=== PATIENT | female | born 1960 | race Caucasian/White ===

== ENCOUNTER → 2017-01-02 | Outpatient (CLI) | payer BC ==
--- NOTE | 2017-01-03 11:16 | RADIOLOGY REPORT (SQ) ---
EXAM DESCRIPTION: MRI BREAST BILAT W AND/OR WO COMPLETED DATE/TIME: 01/02/2017 11:34 am REASON FOR STUDY: BREAST CA C50.919 MALIGNANT NEOPLASM OF UNSP SITE OF UNSPECIFIED FEMAL COMPARISON: Mammography and ultrasound. PATHOLOGIC CORRELATION: Invasive ductal carcinoma. CONTRAST TYPE AND DOSE: 20 mL Prohance. RENAL FUNCTION: GFR > 60. TECHNIQUE: MR imaging performed with a dedicated breast coil. Pre contrast T1 and T2 weighted images . Pre contrast and post contrast enhanced T1 weighted images with fat saturation. Subtraction images, 3D thick and thin MIPS, and kinetic analysis performed on an independent workstat ion. ([employer] workstation) Magnet strength: 1.5 T LIMITATIONS: None FINDINGS: BREAST DENSITY: c. The breasts are heterogeneously dense, which may obscure small masses. BACKGROUND PARENCHYMAL ENHANCEMENT:Minimal. RIGHT BREAST: No enhancing or suspicious masses. No clumped, regional/segmental ductal enhancement. CHEST WALL: Normal tissue planes. No abnormal internal mammary nodes. AXILLA: Normal axillary and retro-pectoral nodes. LEFT BREAST:Index lesion dominant mass in the medial breast measures 4 cm maximum diameter. Micro lo bulated with heterogeneous enhancement and type 3 curve. Extending medially and posteriorly from the S mass is a seconds mass along the medial chest wall without chest wall invasion. This measures 1.8 cm. Type 3 curve. No clumped, regional/segmental ductal enhancement. CHEST WALL: Normal tissue planes. No abnormal internal mammary nodes. AXILLA: Normal axillary and retro-pectoral nodes. OTHER:There is a focal area of suspicion in the sternum with low signal on T1 and high signal on T2. No suspicious findings in the visualized liver. IMPRESSION: Index mass in the left breast measuring 4 cm with a seconds mass posteromedial along the medial chest wall measuring 1.8 cm. This is either a satellite lesion, or a metastatic intramammary lymph node. Area in the sternum suspicious for metastatic disease. BIRAD: RIGHT BREAST: 1 Negative. LEFT BREAST: 5 Highly suggestive of malignancy. Appropriate action should be taken. Lesion 2 Index lesion is BI-RADS 6. RECOMMENDATION: RECOMMENDED FOLLOW-UP: If there is potential change in treatment plan, the second po steromedial lesion should be biopsied. Lesion should be visible by ultrasound for biopsy. Recommend bone scan for evaluation of bony metastatic disease. TECHNICAL DOCUMENTATION: JOB ID: [id number]- All Rights Reserved
== END ==
LOC: RAD 09:30
PROVIDERS: ATTEND Surgery
DX: C50.919 Malignant neoplasm of unspecified site of unspecified female breast (principal)
CPT/HCPCS: 82565; A9576; C8906; 77059

== ENCOUNTER → 2017-01-10 | Day surgery (SDC) | payer BC ==
[~2017-01-10] MED LIST: LIDOCAINE 2% INJ (20 MG/ML) 20 ML MDV ONE
--- NOTE | 2017-01-15 13:28 | WOMENS IMAGING REPORT ---
EXAM DESCRIPTION: U/S BREAST BX; LEFT DIG DX MAMMO NO CHG COMPLETED DATE/TIME: 01/10/2017 2:38 pm; 01/10/2017 2:34 pm REASON FOR STUDY: C50.919; C50.919 S/P US LT BRST BX FOR CLIP PLACEMENT C50.919 MALIGNANT NEOPLASM OF UNSP SITE OF UNSPECIFIED FEMAL COMPARISON: MRI 01/02/2017 Outside mammograms and ultrasound 12/21/2016 Outside prior mammograms 04/22/2015, 05/03/2009 TECHNIQUE: The procedure was discussed with the patient and the patient agreed to proceed. The patient was scanned and the area of interest in the upper inner quadrant of the left breast was l ocalized. This correlates with the area of concern on prior imaging studies. This area was targeted for ultrasound-guided core biopsy. After sterile skin prep and 3.5 mL of local lidocaine 1% for skin and deep tissue anesthesia, a 14 ga uge coaxial core biopsy needle was used to obtain several cores of tissue from the lesion. Under ult rasound guidance, a ribbon clip was placed in the areas sampled. There were no immediate post-proced ure complications. MAMMOGRAM: Post-procedure two view mammogram was acquired in the digital mammogram suite. The clip wa s not in the expected location. No significant hematoma. Ultrasound-guided biopsy was performed clos e to the dominant mass, on the lateral edge about 1 cm from the edge of the tumor. The area of toyin rn on the MRI is more superior and medial in the left breast, near the sternum. This area was not we ll-visualized at ultrasound. These findings were discussed with Dr. Perez, 01/11/2017. These findings were also discussed with the patient. Stereotactic biopsy of this breast tissue in the far upper in ner quadrant left breast will be performed. Pathology yields a diagnosis of malignancy Pathology is concordant. LIMITATIONS: None. FINDINGS: Ultrasound guided breast biopsy as described above. POST PROCEDURE MAMMOGRAMS FOR MARKER PLACEMENT: Yes IMPRESSION: ULTRASOUND-GUIDED CORE BIOPSY OF THE LEFT BREAST YIELDS A DIAGNOSIS OF MALIGNANCY. THE POSTPROCEDURE TWO-VIEW MAMMOGRAMS DEMONSTRATE THAT THE CLIP IS INFERIOR AND LATERAL TO THE AREA O F CONCERN NOTED ON MRI WHICH IS IN THE FAR UPPER INNER QUADRANT LEFT BREAST. THESE FINDINGS WERE DIS CUSSED WITH THE PATIENT AND WITH DR. PEREZ. PATIENT WILL BE RESCHEDULED FOR A A STEREOTACTIC BIOPSY O F THE UPPER INNER QUADRANT. COMMENT: COMMUNICATION: FINDINGS DISCUSSED WITH THE PATIENT AND ORDERING PHYSICIAN 01/11/2017 Patient medication list reviewed: Yes- Quality ID# [id number]:Eligible professional attests to documenting i n the medical record they obtained, updated, or reviewed the patient's current medications. TECHNICAL DOCUMENTATION: JOB ID: [id number] [employer]- All Rights Reserved
== END ==
LOC: WI 13:20
PROVIDERS: ATTEND Surgery
PROC: 0HBU3ZX Excision of Left Breast, Percutaneous Approach, Diagnostic (ICD-10-PCS; principal; 2017-01-10)
DX: C50.912 Malignant neoplasm of unspecified site of left female breast (principal)
CPT/HCPCS: 88305 ×2; 19083; J3490

== ENCOUNTER → 2017-01-16 | Day surgery (SDC) | payer BC ==
[~2017-01-16] MED LIST changes: +LIDOCAINE 1%/EPINEPHRINE INJ 20 ML VIAL ONE; -LIDOCAINE 2% INJ (20 MG/ML) 20 ML MDV ONE
--- NOTE | 2017-01-18 17:16 | RADIOLOGY REPORT (SQ) ---
EXAM DESCRIPTION: STEREO BREAST BX; LEFT DIG DX MAMMO NO CHG COMPLETED DATE/TIME: 01/16/2017 1:51 pm; 01/16/2017 1:54 pm REASON FOR STUDY: MAL ETELVINA OF UNSPECIFIED LEFT FEMALE BREAST; LT BREAST POST BIOPSY C50.912 MALIGNAN T NEOPLASM OF UNSPECIFIED SITE OF LEFT FEMAL COMPARISON: Multiple mammograms and breast ultrasounds dating back to 2008, MRI bilateral breast 01/02/2017 TECHNIQUE: Vacuum-assisted stereotactic-guided biopsy of the lesion in the far left medial breast. S erial progress stereotactic and single digital images acquired. PROCEDURE: The procedure was discussed with the patient, including possible complications such as bleeding, infection, nondiagnostic sample or possible findings such as atypical ductal hyperplasia wh ich would require additional surgery. Possible clip placement was explained. The patient agreed t o the procedure. The patient was placed prone on the stereotactic table. The lesion in the breast was localized ster eotactically. The skin of the breast was prepped in sterile fashion. Superficial and deep local an esthesia was provided. A small incision was made in the skin and the biopsy probe was advanced to t he target. Using the vacuum-assisted core biopsy device, multiple core specimens were obtained. Continuous low dose infusion of local anesthesia was used during the procedure. A specimen radiograph was obtained. The radiograph demonstrated solid tissue in the biopsy tissue. Using [id number] technique a ribbon clip was deployed at the biopsy site. Mammographic image confirmed presence of the clip. The probe was then removed and hemostasis obtained with manua l compression. A compression bandage was applied. Postoperative instructions were explained to th e patient. POST-PROCEDURE TWO VIEW DIGITAL MAMMOGRAM: An additional two view mammogram was recorded in the [facility] mammographic suite. Marker clip is present at the biopsy site, marking the malignant appearing tissue in the far medial left breast near the sternum seen on MRI 01/02/2017. LIMITATIONS: None. FINDINGS: PATHOLOGY: Invasive ductal carcinoma CONCORDANT: Yes. POST PROCEDURE MAMMOGRAMS FOR MARKER PLACEMENT: Yes IMPRESSION: SUCCESSFUL STEREOTACTIC-GUIDED BIOPSY OF THE LESION IN THE LEFT BREAST. BIOPSY RESULTS ARE CONCORDANT WITH IMAGING FINDINGS FOLLOW-UP: As Per Dr Reich NOTIFICATION: Dr Reich notified. COMMENT: Patient medication list reviewed: Yes- Quality ID# [id number]:Eligible professional attests to doc umenting in the medical record they obtained, updated, or reviewed the patient's current medications. TECHNICAL DOCUMENTATION: JOB ID: [id number] [employer]- All Rights Reserved
== END ==
LOC: WI 10:39
PROVIDERS: ATTEND Surgery
PROC: 0HBU3ZX Excision of Left Breast, Percutaneous Approach, Diagnostic (ICD-10-PCS; principal; 2017-01-16)
DX: C50.912 Malignant neoplasm of unspecified site of left female breast (principal)
CPT/HCPCS: 88305 ×2; 88342; 19081; J3490

== ENCOUNTER → 2017-01-24 | Outpatient (CLI) | payer BC ==
--- NOTE | 2017-01-24 11:12 | RADIOLOGY REPORT (SQ) ---
EXAM DESCRIPTION: CT CHEST WITH; CT ABD/PELVIS WITH IV ONLY COMPLETED DATE/TIME: 01/24/2017 9:53 am REASON FOR STUDY: BREAST CANCER C50.212 MALIG NEOPLASM OF UPPER-INNER QUADRANT OF LEFT FEMAL COMPARISON: MRI bilateral breasts 01/02/2017 CONTRAST TYPE AND DOSE: contrast/concentration: Isovue 370.00 mg/ml; Total Contrast Delivered: 91.0 ml; Total Saline Delivered: 70.0 ml RENAL FUNCTION: Creatinine 0.6 TECHNIQUE: CT scan of the chest performed using helical scanning technique with dynamic intravenous contrast injection. Images reviewed with lung, soft tissue and bone windows. Reconstructed coronal a nd sagittal MPR images reviewed. All images stored on PACS. CT scan of the abdomen and pelvis performed with intravenous and without oral contrastusing helical s lois technique with dynamic intravenous contrast injection. Images reviewed with lung, soft tissu e and bone windows. Reconstructed coronal and sagittal MPR images reviewed. Delayed images for eval uation of the urinary system also acquired and evaluated. All images stored on PACS. All CT scanners at this facility use dose modulation, iterative reconstruction, and/or weight based d osing when appropriate to reduce radiation dose to as low as reasonably achievable (ALARA). [facility]: Dose Right [facility]: CareDose [facility]: Dose Right [facility]: Teradose 4D [facility]: [employer] RADIATION DOSE: Up-to-date CT equipment and radiation dose reduction techniques were employed. CTDIv ol: 6.3 - 20.9 mGy. DLP: 1952 mGy-cm. . LIMITATIONS: None. FINDINGS: CHEST: LUNGS AND PLEURA: No opacities, nodules, masses. No pneumothorax. No effusions. HILAR AND MEDIASTINAL STRUCTURES: No identified masses or abnormal nodes. HEART AND VASCULAR STRUCTURES: No aneurysm or dissection. No central pulmonary emboli. No pericardi al effusion. HARDWARE: None. THYROID AND OTHER SOFT TISSUES: Thyroid is unremarkable. In the medial left breast, a dominant nodule is present 3.6 x 2.7 cm in size on axial image 29, previ ously biopsied and shown to be malignant. A 2nd, smaller nodule is seen medial to the dominant mass on axial image 28, 1.6 x 0.8 cm in size also biopsy-proven malignant. BONES: On axial image 50-55, and sagittal image 44, a 1.5 x 1 cm mixed lytic and sclerotic focus is p resent in the midline sternum worrisome for metastatic lesion. This correlates with MRI from 01/03/20 17. Bony structures are otherwise unremarkable. OTHER: No other significant finding. ABDOMEN AND PELVIS: LIVER: Normal size. No masses. No dilated ducts. SPLEEN: Normal size. No focal lesions. PANCREAS: No masses. No significant calcifications. No adjacent inflammation or peripancreatic fluid collections. Pancreatic duct not dilated. GALLBLADDER: No identified stones by CT criteria. No inflammatory changes to suggest cholecystitis. ADRENAL GLANDS: No significant masses or asymmetry. RIGHT KIDNEY AND URETER: No solid masses. No significant calcification. No hydronephrosis or hydroure ter. LEFT KIDNEY AND URETER: No solid masses. No significant calcification. No hydronephrosis or hydrouret er. AORTA AND VESSELS: No aneurysm. No dissection. Renal arteries, SMA, celiac without stenosis. RETROPERITONEUM: No retroperitoneal adenopathy, hemorrhage or masses. BOWEL AND PERITONEAL CAVITY: No masses or inflammatory changes. No free fluid or peritoneal masses. APPENDIX: Not visualized, surgically absent ABDOMINAL WALL: No masses. No hernias. BONES: No significant or acute findings. PELVIS: No other significant finding. Post hysterectomy. No adenopathy or free fluid. IMPRESSION: Malignant nodules in the medial aspect of the left breast with solitary sternal bony met astatic lesion. Post hysterectomy and appendectomy TECHNICAL DOCUMENTATION: JOB ID: [id number] Quality ID # [id number]: Final reports with documentation of one or more dose reduction techniques (e.g., Au tomated exposure control, adjustment of the mA and/or kV according to patient size, use of iterative reconstruction technique) 2011 [employer]- All Rights Reserved
== END ==
LOC: RAD 09:25
PROVIDERS: ATTEND Internal Medicine
DX: C50.212 Malignant neoplasm of upper-inner quadrant of left female breast (principal)
CPT/HCPCS: 71260; 74177

== ENCOUNTER → 2017-01-28 | Outpatient (CLI) | payer BC ==
--- NOTE | 2017-01-28 12:21 | RADIOLOGY REPORT (SQ) ---
EXAM DESCRIPTION: NM MUGA REST COMPLETED DATE/TIME: 01/28/2017 11:59 am REASON FOR STUDY: BREAST CANCER C50.212 MALIG NEOPLASM OF UPPER-INNER QUADRANT OF LEFT FEMAL COMPARISON: None. RADIONUCLIDE AND DOSE: 26.8 mCi The route of agent administration: Intravenous TECHNIQUE: Following administration of the radionuclide, gated images of the heart are obtained in t hree projections. Left ventricular functional analysis performed. LIMITATIONS: None. FINDINGS: LEFT VENTRICULAR FUNCTION: EJECTION FRACTION: 60%. END-DIASTOLIC VOLUME: 94 mL. END-SYSTOLIC VOLUME: 37 mL. WALL MOTION: No focal wall motion abnormalities. OTHER: No other significant finding. IMPRESSION: NORMAL CARDIAC MUGA STUDY. NORMAL LEFT VENTRICULAR FUNCTION WITH VALUES ABOVE. TECHNICAL DOCUMENTATION: JOB ID: [id number] [employer]- All Rights Reserved
== END ==
LOC: RAD 10:36
PROVIDERS: ATTEND Internal Medicine
DX: C50.212 Malignant neoplasm of upper-inner quadrant of left female breast (principal)
CPT/HCPCS: 78472; A9560; Q9969

== ENCOUNTER → 2017-02-01 | Outpatient (CLI) | payer BC ==
--- NOTE | 2017-02-01 14:03 | RADIOLOGY REPORT (SQ) ---
EXAM DESCRIPTION: NM WHOLE BODY BONE SCAN COMPLETED DATE/TIME: 02/01/2017 1:50 pm REASON FOR STUDY: BREAST CA (C50.212) C50.212 MALIG NEOPLASM OF UPPER-INNER QUADRANT OF LEFT FEMAL COMPARISON: Chest x-ray 02/01/2017, CT chest 01/26 RADIONUCLIDE AND DOSE: 20 millicuries Tc99m MDP. The route of agent administration: Intravenous. ADDITIONAL DRUGS AND DOSES: None. TECHNIQUE: Routine delayed images at 3 hours post radionuclide injection acquired of the bony skelet on including anterior and posterior whole-body projections and additional focused images as needed. LIMITATIONS: None. FINDINGS: BONES: There is mild increased uptake in the acromioclavicular joints, right knee, and lef t foot. These areas are felt to represent degenerative change. There are no other abnormal areas up take to suggest metastatic disease to bone. KIDNEYS: Symmetric excretion without obstruction. OTHER: No other significant finding. IMPRESSION: There is no evidence of metastatic disease to bone. COMMENT: PQRS 3570F: Current bone scan is compared with any available plain radiographs, prior bone scans, and CT/MRI. TECHNICAL DOCUMENTATION: JOB ID: [id number] [employer]- All Rights Reserved
== END ==
LOC: RAD 08:00
PROVIDERS: ATTEND Internal Medicine
DX: C50.212 Malignant neoplasm of upper-inner quadrant of left female breast (principal)
CPT/HCPCS: 78306; A9561; Q9969

== ENCOUNTER 2017-02-05 14:02 | Day surgery (SDC) | payer BC ==
[2017-01-29 10:20] LABS: HEMATOCRIT 44.5 % (36.0-47.0); HGB HCT DIFFERENCE 0.5; MEAN CORPUSCULAR HEMOGLOBIN 31.2 pg (27.0-33.4); MEAN CORPUSCULAR HGB CONC 33.7 g/dL (32.0-36.0); MEAN CORPUSCULAR VOLUME 93 fl (80-97); RED BLOOD COUNT 4.81 10^6/uL (3.72-5.28); RED CELL DISTRIBUTION WIDTH 12.7 % (11.5-14.0); WHITE BLOOD COUNT 8.4 10^3/uL (4.0-10.5)
--- NOTE | 2017-02-01 08:52 | RADIOLOGY REPORT (SQ) ---
EXAM DESCRIPTION: CHEST PA/LATERAL COMPLETED DATE/TIME: 02/01/2017 8:43 am REASON FOR STUDY: PRE-OP COMPARISON: None. EXAM PARAMETERS: NUMBER OF VIEWS: two views TECHNIQUE: Digital Frontal and Lateral radiographic views of the chest acquired. RADIATION DOSE: NA LIMITATIONS: none FINDINGS: LUNGS AND PLEURA: No opacities, masses or pneumothorax. No pleural effusion. MEDIASTINUM AND HILAR STRUCTURES: No masses or contour abnormalities. HEART AND VASCULAR STRUCTURES: Heart normal size. No evidence for failure. BONES: No acute findings. HARDWARE: None in the chest. OTHER: No other significant finding. IMPRESSION: NO SIGNIFICANT RADIOGRAPHIC FINDING IN THE CHEST. TECHNICAL DOCUMENTATION: JOB ID: [id number] [employer]- All Rights Reserved
[~2017-02-05 14:02] MED LIST changes: +ACETAMINOPHEN 325 MG TABLET PO PRN; +CEFAZOLIN 1 GM/D5W RTU 1 GM/50 ML RTUPB IV PRN; +LACTATED RINGERS 1000 ML IV PRN; +LIDOCAINE 0.5% INJ-PF (5 MG/ML) 50 ML SDV SUBCUT PRN; -LIDOCAINE 1%/EPINEPHRINE INJ 20 ML VIAL ONE
[2017-02-05] MEDS ORDERED: BUPIVACAINE HCL 0.25 % INJ/PF (2.5 MG/1 ML) 30 ML VIAL ONE (16:19)
[2017-02-05] MEDS ORDERED: MIDAZOLAM 2 MG/2 ML INJ ONE (16:26)
[2017-02-05] MEDS ORDERED: PROPOFOL INJ 200 MG/20 ML VIAL IV ONE (16:26)
[2017-02-05] MEDS ORDERED: FENTANYL CITRATE INJ/PF 100 MCG/2 ML AMPUL ONE (16:26)
[2017-02-05] MEDS ORDERED: BUPIVACAINE HCL 0.25 % INJ/PF (2.5 MG/1 ML) 30 ML VIAL INJ ONE (17:08)
--- NOTE | 2017-02-05 17:30 | Operative Report ---
Operative Report DATE OF SURGERY: 02/05/17 PREOPERATIVE DIAGNOSIS: Left breast cancer POSTOPERATIVE DIAGNOSIS: Left breast cancer OPERATION: Right subclavian single-lumen PowerPort placement (permanent implanted central venous access placed via fluoroscopic guidance) SURGEON: HEBER PEREZ ANESTHESIA: LMAC TISSUE REMOVED OR ALTERED: None COMPLICATIONS: None ESTIMATED BLOOD LOSS: 20 cc INTRAOPERATIVE FINDINGS: None PROCEDURE: Informed consent was obtained. Patient was brought to the operating room and placed on the operating room table in the supine position. Procedure was done under LMAC. Patient's right chest and neck were prepped and draped in the usual sterile fashion. Local anesthetic was administered. The right subclavian vein was entered. The guidewire was placed into the central circulation under fluoroscopic guidance. A subcutaneous pocket was created in the patient's right upper chest. Single-lumen catheter was then tunneled to the guidewire insertion point. Using the introducer catheter the catheter was fed into the central circulation under fluoroscopic guidance. Its tip resided at the atrial superior vena cava junction. The catheter was then attached to the port which was implanted into the subcutaneous pocket. The port withdrew blood and flushed easily. Hemostasis appeared excellent. All skin incisions were closed with subcuticular interrupted vicryl sutures followed by running subcuticular Monocryl suture. Patient tolerated procedure well with no apparent complications and was taken to the recovery area in stable condition. Stat portable chest x-ray was ordered in the recovery room.
[2017-02-05] MEDS ORDERED: OXYCODONE-ACETAMINOPHEN 5-325 MG TABLET PO PRN (17:34)
[2017-02-05] MEDS ORDERED: RINGERS SOLUTION,LACTATED 1,000 ML IV PRN (17:34)
--- NOTE | 2017-02-05 17:34 | PDOC DISCHARGE SUMMARY ---
Discharge Summary (SDC) - Discharge Final Diagnosis: Left breast cancer Date of Surgery: 02/05/17 Discharge Date: 02/05/17 Condition: Good Forms: ASU Anesthesia D/C Instruction, Discharge POC-Surgical Service Treatment or Instructions: poratacath placement. d/c home when met criteria. f/u prn. may shower in 2 days. keep steristrips on. Prescriptions: Oxycodone HCl/Acetaminophen [Percocet 5-325 mg Tablet] 1 - 2 tab PO ASDIR PRN # 15 tablet PRN Reason: Referrals: HEBER PEREZ MD [ACTIVE STAFF] - Discharge Diet: As Tolerated Discharge Activity: Activity As Tolerated - Stay active but avoid strenuous activity. May shower in 2 days. Keep Steri-Strips on. Report the Following to Your Physician Immediately: Shortness of Breath, Fever over 101 Degrees, Unusual Bleeding, Redness
--- NOTE | 2017-02-05 18:17 | RADIOLOGY REPORT (SQ) ---
EXAM DESCRIPTION: CHEST SINGLE VIEW COMPLETED DATE/TIME: 02/05/2017 5:49 pm REASON FOR STUDY: s/p portacath COMPARISON: 02/05/2017 EXAM PARAMETERS: NUMBER OF VIEWS: One view. TECHNIQUE: Single frontal radiographic view of the chest acquired. RADIATION DOSE: NA LIMITATIONS: None. FINDINGS: LUNGS AND PLEURA: There is no pneumothorax. There is no infiltrate or effusion. No mass is present. MEDIASTINUM AND HILAR STRUCTURES: No masses. Contour normal. HEART AND VASCULAR STRUCTURES: Heart normal in size. Normal vasculature. BONES: No acute findings. HARDWARE: An injection port is present on the right. The tip of the catheter is in the superior vena cava. OTHER: No other significant finding. IMPRESSION: Port-A-Cath placement without complication. TECHNICAL DOCUMENTATION: JOB ID: [id number]
[2017-02-05 19:35] VITALS: BP 123/73
--- NOTE | 2017-02-05 22:57 | RADIOLOGY REPORT (SQ) ---
EXAM DESCRIPTION: FLUORO/CV PLACEMENT COMPLETED DATE/TIME: 02/05/2017 5:29 pm REASON FOR STUDY: PORTACATH C50.919 MALIGNANT NEOPLASM OF UNSP SITE OF UNSPECIFIED FEMAL COMPARISON: Chest radiograph FLUOROSCOPY TIME: 0.7 minutes 2 images saved to PACS. TECHNIQUE: Intra-operative images acquired during surgical procedure to evaluate progress. NUMBER OF IMAGES: 2 LIMITATIONS: None. FINDINGS: Placement of venous access catheter via right subclavian approach. IMPRESSION: IMAGE(S) OBTAINED DURING PROCEDURE. COMMENT: Quality ID [id number]: Final reports for procedures using fluoroscopy that document radiation exp osure indices, or exposure time and number of fluorographic images (if radiation exposure indices are not available) Please consult full operative report of the attending physician for description of the procedure. TECHNICAL DOCUMENTATION: JOB ID: [id number] [email or web address]- All Rights Reserved
== END 2017-02-05 19:30 | disposition home or self-care (01) ==
LOC: OROUT 14:02
PROVIDERS: ATTEND Surgery
PROC: 05H533Z Insertion of Infusion Device into Right Subclavian Vein, Percutaneous Approach (ICD-10-PCS; principal; 2017-02-05 16:30)
DX: C50.912 Malignant neoplasm of unspecified site of left female breast (principal); M19.90 Unspecified osteoarthritis, unspecified site; F17.210 Nicotine dependence, cigarettes, uncomplicated; Z88.5 Allergy status to narcotic agent; Z88.2 Allergy status to sulfonamides; Z91.040 Latex allergy status
CPT/HCPCS: 36561; 36415; 85027; 71020; 71010; 77001; C1788; J2250; J0690; J3010; J2704; J1642; 532

== ENCOUNTER 2017-06-07 08:03 | Outpatient (CLI) | payer BC ==
[~2017-06-07 08:03] MED LIST changes: -ACETAMINOPHEN 325 MG TABLET PO PRN; -CEFAZOLIN 1 GM/D5W RTU 1 GM/50 ML RTUPB IV PRN; -LACTATED RINGERS 1000 ML IV PRN; -LIDOCAINE 0.5% INJ-PF (5 MG/ML) 50 ML SDV SUBCUT PRN; +NORMAL SALINE 1000 ML 1,000 ML IV PRN
[2017-06-07 08:46] VITALS: BP 104/53
== END 2017-06-07 09:25 | disposition home or self-care (01) ==
LOC: II 08:03 → 5TH 08:04 → II 09:25
PROVIDERS: ATTEND Internal Medicine
PROC: 3E0437Z Introduction of Electrolytic and Water Balance Substance into Central Vein, Percutaneous Approach (ICD-10-PCS; principal; 2017-06-07)
DX: C50.212 Malignant neoplasm of upper-inner quadrant of left female breast (principal)
CPT/HCPCS: 96360; 96375

== ENCOUNTER → 2017-06-23 | Outpatient (CLI) | payer BC ==
--- NOTE | 2017-06-24 08:57 | RADIOLOGY REPORT (SQ) ---
EXAM DESCRIPTION: PET CT SKULL/THIGH COMPLETED DATE/TIME: 06/23/2017 6:38 pm REASON FOR STUDY: BREAST CANCER C20 MALIGNANT NEOPLASM OF RECTUM COMPARISON: None. RADIONUCLIDE AND DOSE: 13.1 mCi F18 FDG The route of agent administration: Intravenous FASTING BLOOD SUGAR: 94 mg/dl CONTRAST TYPE AND DOSE: No CT contrast given. TECHNIQUE: Blood glucose level was verified. Above dose of FDG was injected intravenously. 2-D seg mented attenuation correction images were obtained from the base of the skull to the midthighs. Nonc ontrast CT images were obtained for attenuation correction and fusion with emission images. CT image s were performed without oral or intravenous contrast and are not sensitive for parenchymal lesions. A series of overlapping emission PET images were obtained. Images reviewed and manipulated at [facility] work station by the radiologist. Images stored on PACS. LIMITATIONS: None. FINDINGS: HEAD AND NECK: No areas of abnormal metabolic activity in the soft tissues of the head and neck. CHEST: No areas of abnormal metabolic activity in the chest. ABDOMEN AND PELVIS: No areas of abnormal metabolic activity in the abdomen or pelvis. Expected physi ologic activity is present in the genitourinary system and bowel. PROXIMAL LOWER EXTREMITIES: No areas of abnormal metabolic activity in the soft tissues of the lower extremities. BONES: No abnormal metabolic activity in the visualized skeleton. ADDITIONAL CT FINDINGS: No additional significant findings on the noncontrast CT images. OTHER: No other significant findings. IMPRESSION: No evidence of metastatic disease. TECHNICAL DOCUMENTATION: JOB ID: [id number]- All Rights Reserved
== END ==
LOC: RAD 14:56
PROVIDERS: ATTEND Internal Medicine
DX: C50.212 Malignant neoplasm of upper-inner quadrant of left female breast (principal)
CPT/HCPCS: 78815; A9552

== ENCOUNTER → 2017-07-04 | Outpatient (CLI) | payer BC ==
--- NOTE | 2017-07-04 14:51 | RADIOLOGY REPORT (SQ) ---
EXAM DESCRIPTION: NM MUGA REST COMPLETED DATE/TIME: 07/04/2017 2:08 pm REASON FOR STUDY: ENCTR FOR F/U EXAM AFTER COMPLETED TX FOR MALIGNANT NEOPLASM (Z08), ENCTR F C50.91 9 MALIGNANT NEOPLASM OF UNSP SITE OF UNSPECIFIED FEMAL Z08 ENCNTR FOR FOLLOW-UP EXAM AFTER TRTMT FO R MALIGNANT NEOP Z51.11 ENCOUNTER FOR ANTINEOPLASTIC CHEMOTHERAPY COMPARISON: None. RADIONUCLIDE AND DOSE: 23.1 mCi technetium 99 M pyrophosphate labeled red blood cells. The route of agent administration: Intravenous TECHNIQUE: Following administration of the radionuclide, gated images of the heart are obtained in t hree projections. Left ventricular functional analysis performed. LIMITATIONS: None. FINDINGS: LEFT VENTRICULAR FUNCTION: EJECTION FRACTION: 63%. END-DIASTOLIC VOLUME: 212 mL. END-SYSTOLIC VOLUME: 73 mL. WALL MOTION: No focal wall motion abnormalities. OTHER: No other significant finding. IMPRESSION: NORMAL CARDIAC MUGA STUDY. NORMAL LEFT VENTRICULAR FUNCTION WITH VALUES ABOVE. TECHNICAL DOCUMENTATION: JOB ID: [id number] [employer] All Rights Reserved
--- NOTE | 2017-07-05 17:16 | RADIOLOGY REPORT (SQ) ---
EXAM DESCRIPTION: MRI BREAST BILAT W AND/OR WO COMPLETED DATE/TIME: 07/04/2017 10:01 am REASON FOR STUDY: Breast Cancer, follow up to evaluate breast cancer after neoadjuvent treatm C50.91 9 MALIGNANT NEOPLASM OF UNSP SITE OF UNSPECIFIED FEMAL Z08 ENCNTR FOR FOLLOW-UP EXAM AFTER TRTMT FO R MALIGNANT NEOP Z51.11 ENCOUNTER FOR ANTINEOPLASTIC CHEMOTHERAPY COMPARISON: Prior MRI 01/02/2017 PATHOLOGIC CORRELATION: Known malignancy in the left breast. Neoadjuvant chemo. CONTRAST TYPE AND DOSE: 20 mL Prohance. RENAL FUNCTION: Not documented TECHNIQUE: MR imaging performed with a dedicated breast coil. Pre contrast T1 and T2 weighted images . Pre contrast and post contrast enhanced T1 weighted images with fat saturation. Subtraction images, 3D thick and thin MIPS, and kinetic analysis performed on an independent workstat ion. ([employer]matrix workstation) Magnet strength: 1.5 T LIMITATIONS: None. FINDINGS: BREAST DENSITY: b. There are scattered areas of fibroglandular density. BACKGROUND PARENCHYMAL ENHANCEMENT:Minimal. RIGHT BREAST: No enhancing or suspicious masses. No clumped, regional/segmental ductal enhancement. CHEST WALL: Normal tissue planes. No abnormal internal mammary nodes. AXILLA: Normal axillary and retro-pectoral nodes. LEFT BREAST:Dominant mass in the left breast is trauma significantly. There is some vague general en hancement in the region measuring approximately 2 cm. There is persistent extension toward the nippl e but decrease considerably from previous. Lesion 2 in the Superior medial persists but measures les s than 1 cm with much less enhancement. No clumped, regional/segmental ductal enhancement. CHEST WALL: There is continued concern for metastatic disease to the sternum, although the lesion ap pears to responded to chemotherapy. AXILLA: Normal axillary and retro-pectoral nodes. OTHER:No identified liver, or lung lesions. No other significant incidental findings. IMPRESSION: Marked response to chemotherapy with reduction in size and enhancement of both the domin ant lesion in the satellite lesion in the left breast. There is persistent enhancement to the nipple of the dominant lesion. Sternal lesion, likely metastatic, is smaller in size than on the previous study. No additional meta static lesions noted. BIRAD: RIGHT BREAST: 2 Benign findings. LEFT BREAST: 6 Known biopsy-proven malignancy. Appropriate action should be taken. RECOMMENDATION: RECOMMENDED FOLLOW-UP: Treatment protocol. TECHNICAL DOCUMENTATION: JOB ID: [id number] [employer]- All Rights Reserved
== END ==
LOC: RAD 08:32
PROVIDERS: ATTEND Surgery
DX: Z08 Encounter for follow-up examination after completed treatment for malignant neoplasm (principal); C50.912 Malignant neoplasm of unspecified site of left female breast
CPT/HCPCS: 82565; 78472; A9576; C8906; A9560; Q9969; 77059

== ENCOUNTER 2017-07-30 08:11 | Day surgery (SDC) | payer BC ==
--- NOTE | 2017-07-24 10:33 | EKG REPORT ---
SEVERITY:- NORMAL ECG - SINUS RHYTHM : Confirmed by: Marisol Cunningham 24-Jul-2017 10:32:15
[2017-07-24 10:58] LABS: HEMATOCRIT 42.5 % (36.0-47.0); HEMOGLOBIN 14.5 g/dL (12.0-15.5); MEAN CORPUSCULAR HEMOGLOBIN 32.7 pg (27.0-33.4); MEAN CORPUSCULAR HGB CONC 34.1 g/dL (32.0-36.0); MEAN CORPUSCULAR VOLUME 96 fl (80-97); PLATELET COUNT 288 10^3/uL (150-450); RED BLOOD COUNT 4.43 10^6/uL (3.72-5.28); RED CELL DISTRIBUTION WIDTH 15.2 % (11.5-14.0); WHITE BLOOD COUNT 7.7 10^3/uL (4.0-10.5)
[2017-07-24 11:24] LABS: ALANINE AMINOTRANSFERASE 37 U/L (9-52); ALBUMIN 4.1 g/dL (3.5-5.0); ALKALINE PHOSPHATASE 72 U/L (38-126); ANION GAP 9 (5-19); ASPARTATE AMINO TRANSFERASE 21 U/L (14-36); BILIRUBIN,DIRECT 0.2 mg/dL (0.0-0.4); BILIRUBIN,TOTAL 0.3 mg/dL (0.2-1.3); BLOOD UREA NITROGEN 9 mg/dL (7-20); CALCIUM 9.9 mg/dL (8.4-10.2); CARBON DIOXIDE 27 mmol/L (22-30); CHLORIDE 105 mmol/L (98-107); GLUCOSE 83 mg/dL (75-110); POTASSIUM 4.5 mmol/L (3.6-5.0); SODIUM 141.4 mmol/L (137-145); TOTAL PROTEIN 6.3 g/dL (6.3-8.2)
--- NOTE | 2017-07-24 13:48 | RADIOLOGY REPORT (SQ) ---
EXAM DESCRIPTION: CHEST PA/LATERAL COMPLETED DATE/TIME: 07/24/2017 10:55 am REASON FOR STUDY: PRE OP COMPARISON: AP chest 02/05/2017 CT chest 01/24/2017 PET-CT 06/23/2017 EXAM PARAMETERS: NUMBER OF VIEWS: two views TECHNIQUE: Digital Frontal and Lateral radiographic views of the chest acquired. RADIATION DOSE: NA LIMITATIONS: none FINDINGS: LUNGS AND PLEURA: No opacities, masses or pneumothorax. No pleural effusion. MEDIASTINUM AND HILAR STRUCTURES: No masses or contour abnormalities. HEART AND VASCULAR STRUCTURES: Heart normal size. No evidence for failure. BONES: No acute findings. HARDWARE: Right-sided permanent central line tip superior vena cava OTHER: No other significant finding. IMPRESSION: No acute findings. Right subclavian permanent central line tip superior vena cava TECHNICAL DOCUMENTATION: JOB ID: [id number]- All Rights Reserved
[~2017-07-30 08:11] MED LIST changes: +CEFAZOLIN 1 GM/D5W RTU 1 GM/50 ML RTUPB IV PRN; +DEXAMETHASONE SOD PHOSPHATE INJ 4 MG/1 ML VIAL ONE; +GLYCOPYRROLATE INJ 0.4 MG/2 ML VIAL ONE; +LACTATED RINGERS 1000 ML IV PRN; +LIDOCAINE 0.5% INJ-PF (5 MG/ML) 50 ML SDV SUBCUT PRN; +LIDOCAINE 2% INJ-PF (20 MG/ML) 2 ML AMPUL ONE; +LIDOCAINE 4% TRANSPARENT DRESSING 5 GM KIT TP PRN; +ONDANSETRON HCL INJ/PF 4 MG/2 ML SDV ONE; +SCOPOLAMINE HYDROBROMIDE 1.5 MG PATCH.TD72 TD PRN; +SUCCINYLCHOLINE CHLORIDE INJ 200 MG/10 ML VIAL ONE
[2017-07-30] MEDS ORDERED: FENTANYL CITRATE INJ/PF 100 MCG/2 ML AMPUL ONE (11:04)
[2017-07-30] MEDS ORDERED: MORPHINE SULFATE 10 MG/ML INJ ONE (11:05)
[2017-07-30] MEDS ORDERED: ACETAMINOPHEN 100 ML IV ONE (11:05)
[2017-07-30] MEDS ORDERED: MIDAZOLAM 2 MG/2 ML INJ ONE (11:05)
[2017-07-30] MEDS ORDERED: PROPOFOL INJ 200 MG/20 ML VIAL IV ONE (11:05)
[2017-07-30] MEDS ORDERED: FAMOTIDINE INJ/PF 20 MG/2 ML SDV IV ONE (11:15)
[2017-07-30] MEDS: METHYLENE BLUE 50 MG/10 ML AMPULE ONE ×2 (12:00→12:05)
--- NOTE | 2017-07-30 12:49 | RADIOLOGY REPORT (SQ) ---
EXAM DESCRIPTION: NM LYMPHATICS/LYMPH GLANDS COMPLETED DATE/TIME: 07/30/2017 10:50 am REASON FOR STUDY: LT BREAST CANCER C50.919 C50.919 MALIGNANT NEOPLASM OF UNSP SITE OF UNSPECIFIED F EMAL COMPARISON: Breast MRI 01/02/2017, 07/04/2017 Left breast diagnostic mammograms 01/16/2017 PET-CT 06/23/2017 RADIONUCLIDE AND DOSE: 530 microcuries TC-99mtilmanocept - [employer]. The route of agent administration: Subcutaneous in the skin. TECHNIQUE: The skin of the left breast was prepped in sterile fashion. The radiopharmaceutical was administered in equally divided doses in the intradermal periareolar breast. LIMITATIONS: None. FINDINGS: Images demonstrate activity at the injection site. Migration toward the left axilla. 2 s entinel nodes were marked on the skin surface IMPRESSION: ADMINISTRATION OF RADIOPHARMACEUTICAL FOR SENTINEL LYMPH NODE EVALUATION. TECHNICAL DOCUMENTATION: JOB ID: [id number] [employer]- All Rights Reserved
[2017-07-30] MEDS ORDERED: DIPHENHYDRAMINE HCL 50 MG/ML VIAL IV PRN (13:06)
[2017-07-30] MEDS ORDERED: PROMETHAZINE HCL INJ 25 MG/1 ML VIAL IV PRN (13:06)
[2017-07-30] MEDS ORDERED: FENTANYL CITRATE INJ/PF 100 MCG/2 ML AMPUL IV PRN ×3 (13:06)
[2017-07-30] MEDS ORDERED: BUPIVACAINE HCL 0.25 % INJ/PF (2.5 MG/1 ML) 30 ML VIAL ONE (13:58)
[2017-07-30] MEDS ORDERED: OXYCODONE-ACETAMINOPHEN 5-325 MG TABLET PO PRN (15:10)
[2017-07-30] MEDS ORDERED: NORMAL SALINE 1000 ML 1,000 ML IV PRN (15:10)
[2017-07-30] MEDS ORDERED: ONDANSETRON HCL INJ/PF 4 MG/2 ML SDV ONE (15:16)
--- NOTE | 2017-07-30 15:22 | Operative Report ---
Operative Report DATE OF SURGERY: 07/30/17 PREOPERATIVE DIAGNOSIS: Left breast cancer POSTOPERATIVE DIAGNOSIS: Left breast cancer OPERATION: Left mastectomy. Left axillary sentinel node biopsy. Injection of blue dye for identification of sentinel node. SURGEON: HEBER PEREZ ANESTHESIA: GA TISSUE REMOVED OR ALTERED: Left axillary sentinel nodes, left breast COMPLICATIONS: None ESTIMATED BLOOD LOSS: 100 cc INTRAOPERATIVE FINDINGS: Slightly enlarged axillary nodes. 2 sentinel nodes and slightly enlarged axillary node all negative for metastatic disease. PROCEDURE: Informed consent was obtained. Patient was brought to the operating room and placed on the operating table in supine position. After satisfactory induction of general anesthesia patient left breast was injected at the periareolar region with blue dye and breast massage was performed for 5 minutes. Her left breast and axilla were prepped and draped in usual sterile fashion. A ellipse of skin encompassing the nipple areolar complex was taken with the underlying left breast. Superior inferior lateral flaps were all created the breast was taken off the pectoralis along with the pectoralis fascia breast was passed off the table and marked with a short stitch marking superior border and long stitch marking the lateral border. Axillary sentinel node dissection was performed using the neoprobe and visualization. There were 2 hot nodes that were identified the first one was hot and blue the second one was just hot. The in vivo count of the first node was 30,921 with an ex vivo count of 41,319 for the second note the in vivo count was 2352 with an ex vivo count of 11,420. After these 2 nodes were harvested the background count was negligible. Palpation revealed a slightly enlarged node which was harvested but it was not hot and it was not blue. All 3 nodes were in the level 1 location. The two sentinel nodes were slightly enlarged with the slightly enlarged lymph nodes I did submit them for touch prep as well as frozen section the studies were negative for malignancy. With the negative nodes the operation was concluded. Hemostasis appeared excellent. The wound was closed with deep dermal interrupted Vicryl sutures followed by staple closure of the skin. 2 Kemar- Talamantes drains were placed prior to closure one at the axilla and one at the mastectomy site and brought out through separate stab incisions and sutured in place. Patient tolerated procedure well with no apparent complications and was taken to the recovery area in stable condition.
[2017-07-30] MEDS ORDERED: PROMETHAZINE HCL INJ 25 MG/1 ML VIAL ONE (15:23)
[2017-07-30] MEDS: ONDANSETRON 4 MG TAB.RAPDIS PO PRN (19:09)
[2017-07-30] MEDS: MORPHINE SULFATE 10 MG/ML INJ IV PRN (19:10)
--- NOTE | 2017-07-30 19:30 | PDOC PROGRESS REPORT ---
Subjective Progress Note for:: 07/30/17 Subjective:: Feels well. No complaints. Reason For Visit: C50.919 MALIGNANT NEOPLASM OF UNSP SITE OF UNSPECI Physical Exam Vital Signs: Temp Pulse Resp BP Pulse Ox 97.9 F 74 17 112/44 L 98 07/30/17 18:27 07/30/17 18:27 07/30/17 18:27 07/30/17 18:27 07/30/17 18:27 Intake & Output 07/29/17 07/30/17 07/31/17 06:59 06:59 06:59 Intake Total 2868 Output Total 582.5 Balance 2285.5 Weight 83.91 kg General appearance: PRESENT: no acute distress, cooperative Respiratory exam: PRESENT: clear to auscultation matilde, other - Mastectomy site with no swelling. Drain output is blood-tinged. Cardiovascular exam: PRESENT: RRR Extremities exam: PRESENT: other - No swelling. Results Laboratory Results: 07/24/17 10:10 07/24/17 10:10 Impressions: Chest X-Ray 07/24/17 10:28 IMPRESSION: No acute findings. Right subclavian permanent central line tip superior vena cava Lymph Scan Nuclear Medicine 07/30/17 00:00 IMPRESSION: ADMINISTRATION OF RADIOPHARMACEUTICAL FOR SENTINEL LYMPH NODE EVALUATION. Assessment & Plan - Diagnosis (1) Breast cancer, left Is this a current diagnosis for this admission?: Yes Plan: Status post mastectomy and sentinel node biopsy. Doing well. Will DC patient home in the a.m.
[2017-07-31] MEDS: ONDANSETRON 4 MG TAB.RAPDIS PO PRN (04:17)
[2017-07-31] MEDS: MORPHINE SULFATE 10 MG/ML INJ IV PRN (04:18)
--- NOTE | 2017-07-31 09:09 | PDOC PROGRESS REPORT ---
Subjective Subjective:: Feels well. Reason For Visit: LEFT BREAST CANCER Physical Exam Vital Signs: Temp Pulse Resp BP Pulse Ox 98.0 F 69 18 105/53 L 96 07/31/17 08:12 07/31/17 08:12 07/31/17 08:12 07/31/17 08:12 07/31/17 08:12 Intake & Output 07/30/17 07/31/17 08/01/17 06:59 06:59 06:59 Intake Total 2868 Output Total 582.5 250 Balance 2285.5 -250 Weight 86.9 kg General appearance: PRESENT: no acute distress, cooperative Respiratory exam: PRESENT: clear to auscultation matilde, other - Mastectomy site clean dry and intact with no swelling. No erythema. No evidence of ischemia. Drain output is serosanguineous. Cardiovascular exam: PRESENT: RRR Extremities exam: PRESENT: other - No swelling. Results Laboratory Results: 07/24/17 10:10 07/24/17 10:10 Impressions: Chest X-Ray 07/24/17 10:28 IMPRESSION: No acute findings. Right subclavian permanent central line tip superior vena cava Lymph Scan Nuclear Medicine 07/30/17 00:00 IMPRESSION: ADMINISTRATION OF RADIOPHARMACEUTICAL FOR SENTINEL LYMPH NODE EVALUATION. Assessment & Plan - Diagnosis (1) Breast cancer, left Is this a current diagnosis for this admission?: Yes Plan: Status post mastectomy and sentinel node biopsy. Doing well. Discharge patient home.
[2017-07-31 10:43] VITALS: BP 104/64
--- NOTE | 2017-07-31 12:39 | DISCHARGE SUMMARY E ---
Discharge Summary NAME: PRETTY OSORIO : 1960 AGE: 56Y ADMITTED: 07/30/2017 DISCHARGED: 07/31/2017 DISCHARGE DIAGNOSIS: Left breast cancer. PROCEDURE PERFORMED UNDER HOSPITALIZATION: Left mastectomy, left axillary sentinel node biopsy and injection of blue dye for identification of sentinel node performed by Dr. Adeline Perez on 07/30/2017. HOSPITAL COURSE: The patient underwent the above mentioned procedure. She did well postoperatively. She is now being discharged to home in good condition. She may resume her home medications. Additional medication is Percocet 1 p.o. q.4 hours p.r.n. pain. Kemar-Talamantes drain care was instructed to the patient. She is to remain active at home. She will follow up with me next week. She may follow her regular diet. DICTATING PHYSICIAN: ADELINE PEREZ M.D. [id number] PHY#: [id number] ID: [id number] JOB#: [id number] ACCT: [id number] cc:ADELINE PEREZ M.D. >
--- NOTE | 2017-08-02 18:02 | WOMENS IMAGING REPORT ---
EXAM DESCRIPTION: BREAST SPECIMEN COMPLETED DATE/TIME: 08/01/2017 1:25 pm REASON FOR STUDY: LEFT BREAST SPECIMEN C50.919 MALIGNANT NEOPLASM OF UNSP SITE OF UNSPECIFIED FEMAL COMPARISON: 01/16/2017 POST STEREOTACTIC BIOPSY MAMMOGRAMS TECHNIQUE: Specimen radiograph from breast procedure performed in the operating room. LIMITATIONS: None. FINDINGS: Specimen radiograph from breast procedure performed in the operating room. Please see procedure note for details and final pathology. IMPRESSION: Specimen radiograph. TECHNICAL DOCUMENTATION: JOB ID: [id number]
== END 2017-07-31 11:30 | disposition home or self-care (01) ==
LOC: OROUT 08:11 → 2N 16:46 → OROUT 07-31 11:30
PROVIDERS: ATTEND Surgery
PROC: 07B60ZX Excision of Left Axillary Lymphatic, Open Approach, Diagnostic (ICD-10-PCS; 2017-07-30)
PROC: 0HTU0ZZ Resection of Left Breast, Open Approach (ICD-10-PCS; principal; 2017-07-30 11:30)
DX: C50.812 Malignant neoplasm of overlapping sites of left female breast (principal); Z17.0 Estrogen receptor positive status [ER+]; M19.90 Unspecified osteoarthritis, unspecified site; F17.210 Nicotine dependence, cigarettes, uncomplicated; Z88.5 Allergy status to narcotic agent; Z88.2 Allergy status to sulfonamides; Z88.3 Allergy status to other anti-infective agents; Z79.899 Other long term (current) drug therapy; D64.9 Anemia, unspecified
CPT/HCPCS: 93005; 36415; 85027; 80053; 88342 ×2; 88341 ×2; 88307 ×2; 88331; 71046; 78195; 93010; 19307; A9520; J2250; J0690; J1100; S0119 ×2; J3010; J2270 ×2; J3490 ×2; J2550; J0330; J2405; J7030; J7120; J2704; S0028; J0131; Q9968; 1610

== ENCOUNTER 2017-08-18 04:34 | Inpatient (IN) | payer BC ==
[2017-08-18] MEDS ORDERED: NORMAL SALINE 1000 ML 1,000 ML IV ONE ×2 (05:09→06:38)
[2017-08-18] MEDS ORDERED: ONDANSETRON HCL INJ/PF 4 MG/2 ML SDV IV ONE (05:09)
[2017-08-18] MEDS ORDERED: MORPHINE SULFATE 10 MG/ML INJ IV ONE (05:28)
[2017-08-18 05:50] LABS: ABSOLUTE LYMPHOCYTES (AUTO) 0.7 10^3/uL (0.5-4.7); ABSOLUTE MONOCYTES (AUTO) 0.4 10^3/uL (0.1-1.4); ABSOLUTE NEUT (AUTO) 10.5 10^3/uL (1.7-8.2); BASOPHILS % (AUTO) 0.2 % (0-2); EOSINOPHILS % (AUTO) 0.3 % (0-6); HEMOGLOBIN 14.4 g/dL (12.0-15.5); MEAN CORPUSCULAR HEMOGLOBIN 32.4 pg (27.0-33.4); MEAN CORPUSCULAR HGB CONC 33.5 g/dL (32.0-36.0); MEAN CORPUSCULAR VOLUME 97 fl (80-97); MONOCYTES % (AUTO) 3.1 % (3-13); PLATELET COUNT 291 10^3/uL (150-450); RED BLOOD COUNT 4.45 10^6/uL (3.72-5.28); RED CELL DISTRIBUTION WIDTH 13.9 % (11.5-14.0); SEGMENTED NEUTROPHILS % (AUTO) 90.4 % (42-78); TOTAL CELLS COUNTED % (AUTO) 100 %; WHITE BLOOD COUNT 11.7 10^3/uL (4.0-10.5)
--- NOTE | 2017-08-18 06:11 | ER Document Report ---
ED GI/ - General Chief Complaint: Nausea/Vomiting/Diarrhea Stated Complaint: VOMITING Time Seen by Provider: 08/18/17 04:50 Mode of Arrival: Ambulatory Information source: Patient Notes: Patient presents complaining of nausea and diarrhea that started yesterday. Patient states that she has had some lower abdominal cramping with the diarrhea. Patient denies any fever but does report chills. Patient states that her had vomiting and diarrhea symptoms a few days ago but his symptoms have since resolved. Patient is currently undergoing chemotherapy for breast cancer and is status post left mastectomy on 07/30/2017 TRAVEL OUTSIDE OF THE [place] IN LAST 30 DAYS: No - HPI Patient complains to provider of: Diarrhea, Pelvic pain. No: Vomiting Onset: Yesterday Timing/Duration: Persistent Quality of pain: Cramping Pain Level: 4 Vaginal bleeding (Compared to normal period): None Associated symptoms: Chills, Diarrhea, Nausea. denies: Dysuria, Fever, Urinary hesitancy, Urinary frequency, Urinary retention, Vomiting Exacerbated by: Denies Relieved by: Denies Similar symptoms previously: No Recently seen / treated by doctor: No - Related Data Allergies/Adverse Reactions: adhesive Allergy (Verified 08/18/17 04:44) RASH, SWELLING adhesive tape Allergy (Verified 08/18/17 04:44) RASH codeine Allergy (Verified 08/18/17 04:44) VOMITING, NEUROLICICAL ISSUES Sulfa (Sulfonamide Antibiotics) Allergy (Verified 08/18/17 04:44) Hives Past Medical History - General Information source: Patient - Social History Smoking Status: Current Every Day Smoker Frequency of alcohol use: None Drug Abuse: None Lives with: Spouse/Significant other Family History: Reviewed & Not Pertinent Patient has suicidal ideation: No Patient has homicidal ideation: No - Past Medical History Cardiac Medical History: Denies: Hx Coronary Artery Disease, Hx Heart Attack, Hx Hypertension Pulmonary Medical History: Reports: Hx Pneumonia Denies: Hx Asthma, Hx Bronchitis, Hx COPD Neurological Medical History: Denies: Hx Cerebrovascular Accident, Hx Seizures Renal/ Medical History: Denies: Hx Peritoneal Dialysis Malignancy Medical History: Reports: Hx Breast Cancer Musculoskeltal Medical History: Reports Hx Arthritis - BACK, NECK, BILAT HANDS Past Surgical History: Reports: Hx Mastectomy - Left - Immunizations Hx Diphtheria, Pertussis, Tetanus Vaccination: Yes Review of Systems - Review of Systems Constitutional: Chills EENT: No symptoms reported Cardiovascular: No symptoms reported. denies: Chest pain Respiratory: No symptoms reported. denies: Cough, Short of breath Gastrointestinal: Abdominal pain, Diarrhea, Nausea. denies: Vomiting Genitourinary: No symptoms reported. denies: Dysuria, Flank pain Female Genitourinary: No symptoms reported Musculoskeletal: No symptoms reported. denies: Back pain Skin: No symptoms reported Hematologic/Lymphatic: No symptoms reported Neurological/Psychological: No symptoms reported Physical Exam - Vital signs Vitals: Temp Pulse Resp BP Pulse Ox 98.8 F 113 H 22 H 118/73 94 08/18/17 04:45 08/18/17 04:45 08/18/17 04:45 08/18/17 04:45 08/18/17 04:45 - General General appearance: Appears well, Alert In distress: None - HEENT Head: Normocephalic, Atraumatic Eyes: Normal Conjunctiva: Normal Nasal: Normal Mouth/Lips: Normal Mucous membranes: Dry Pharynx: Normal Neck: Normal, Supple. No: Lymphadenopathy - Respiratory Respiratory status: No respiratory distress Chest status: Nontender Breath sounds: Normal Chest palpation: Normal - Cardiovascular Rhythm: Tachycardia Heart sounds: S1 appreciated, S2 appreciated Murmur: No - Abdominal Inspection: Normal Distension: No distension Bowel sounds: Normal Tenderness: Tender - lower pelvic Organomegaly: No organomegaly - Back Back: Normal, Nontender. No: CVA tenderness - Extremities General upper extremity: Normal inspection, Normal strength General lower extremity: Normal inspection, Normal strength - Neurological Neuro grossly intact: Yes Cognition: Normal Amanda Coma Scale Eye Opening: Spontaneous [place] Coma Scale Verbal: Oriented Amanda Coma Scale Motor: Obeys Commands [place] Coma Scale Total: 15 - Psychological Associated symptoms: Normal affect, Normal mood - Skin Skin Temperature: Warm Skin Moisture: Dry Skin Color: Normal Course - Re-evaluation Re-evalutation: 08/18/17 06:[address] Harini gaviria patient presentation. Recommends consulting with hospitalist for observation admission. Does advise giving either Imodium or Lomotil to help with diarrhea symptoms. 08/18/17 07:41 Patient continues having almost constant diarrhea on bedside commode in room. Consulted with Dr. Artis regarding patient presentation, does agree to bring patient into the hospital as an observation admission. - Vital Signs Vital signs: Temp Pulse Resp BP Pulse Ox 98.4 F 79 22 H 101/53 L 97 08/18/17 07:11 08/18/17 07:11 08/18/17 04:45 08/18/17 07:11 08/18/17 07:11 - Laboratory Result Diagrams: 08/18/17 05:35 08/18/17 05:35 Laboratory results interpreted by me: 08/18/17 08/18/17 05:35 05:35 WBC 11.7 H Seg Neutrophils % 90.4 H Lymphocytes % 6.0 L Absolute Neutrophils 10.5 H Carbon Dioxide 21 L Glucose 114 H Lipase 1020.5 H 08/18/17 07:41 Labs- Entire Visit 08/18/17 08/18/17 08/18/17 05:15 05:35 05:35 WBC 11.7 H RBC 4.45 Hgb 14.4 Hct 43.0 MCV 97 MCH 32.4 MCHC 33.5 RDW 13.9 Plt Count 291 Seg Neutrophils % 90.4 H Lymphocytes % 6.0 L Monocytes % 3.1 Eosinophils % 0.3 Basophils % 0.2 Absolute Neutrophils 10.5 H Absolute Lymphocytes 0.7 Absolute Monocytes 0.4 Absolute Eosinophils 0.0 Absolute Basophils 0.0 Sodium 137.9 Potassium 3.9 Chloride 105 Carbon Dioxide 21 L Anion Gap 12 BUN 13 Creatinine 0.69 Est GFR ( Amer) > 60 Est GFR (Non-Af Amer) > 60 Glucose 114 H Calcium 9.8 Magnesium 1.8 Total Bilirubin 0.5 Direct Bilirubin 0.2 Neonat Total Bilirubin Not Reportable Neonat Direct Bilirubin Not Reportable Neonat Indirect Bili Not Reportable AST 18 ALT 26 Alkaline Phosphatase 73 Total Protein 6.3 Albumin 4.1 Lipase 1020.5 H C. difficile Tox (PCR) NEGATIVE Discharge - Discharge Clinical Impression: Hx of breast cancer Diarrhea Qualifiers: Diarrhea type: unspecified type Qualified Code(s): R19.7 - Diarrhea, unspecified Abdominal pain Qualifiers: Abdominal location: unspecified location Qualified Code(s): R10.9 - Unspecified abdominal pain Pancreatitis Qualifiers: Chronicity: acute Pancreatitis type: unspecified pancreatitis type Acute pancreatitis complication: unspecified Qualified Code(s): K85.90 - Acute pancreatitis without necrosis or infection, unspecified Condition: Stable Disposition: ADMITTED OBSERVATION Admitting Provider: Hospitalist Unit Admitted: Medical Floor
[2017-08-18 06:24] LABS: ALANINE AMINOTRANSFERASE 26 U/L (9-52); ALBUMIN 4.1 g/dL (3.5-5.0); ALKALINE PHOSPHATASE 73 U/L (38-126); ANION GAP 12 (5-19); ASPARTATE AMINO TRANSFERASE 18 U/L (14-36); BILIRUBIN,DIRECT 0.2 mg/dL (0.0-0.4); BILIRUBIN,TOTAL 0.5 mg/dL (0.2-1.3); BLOOD UREA NITROGEN 13 mg/dL (7-20); CALCIUM 9.8 mg/dL (8.4-10.2); CARBON DIOXIDE 21 mmol/L (22-30); CHLORIDE 105 mmol/L (98-107); GLUCOSE 114 mg/dL (75-110); LIPASE 1020.5 U/L (23-300); MAGNESIUM 1.8 mg/dL (1.6-2.3); POTASSIUM 3.9 mmol/L (3.6-5.0); SODIUM 137.9 mmol/L (137-145); TOTAL PROTEIN 6.3 g/dL (6.3-8.2)
[2017-08-18] MEDS ORDERED: LOPERAMIDE HCL 2 MG CAPSULE PO ONE (06:51)
[2017-08-18 07:49] LABS: APPEARANCE,URINE SLIGHTLY-CLOUDY; BILIRUBIN,URINE NEGATIVE (NEGATIVE); COLOR,URINE YELLOW; GLUCOSE, URINE NEGATIVE (NEGATIVE); KETONES,URINE NEGATIVE (NEGATIVE); LEUKOCYTE ESTERASE,URINE NEGATIVE (NEGATIVE); NITRITE,URINE NEGATIVE (NEGATIVE); PROTEIN,URINE NEGATIVE (NEGATIVE); URINE SPECIFIC GRAVITY 1.021; UROBILINOGEN,URINE NEGATIVE mg/dL (<2.0)
[2017-08-18] MEDS ORDERED: GLUCAGON,HUMAN RECOMB 1 MG INJ SUBCUT PRN (08:28)
[2017-08-18] MEDS ORDERED: PROMETHAZINE HCL INJ 25 MG/1 ML VIAL IV PRN (08:28)
[2017-08-18] MEDS ORDERED: ONDANSETRON HCL INJ/PF 4 MG/2 ML SDV IV PRN (08:28)
[2017-08-18] MEDS ORDERED: DEXTROSE 50%-WATER 25 GM/50 ML DISP.SYRIN IV PRN ×2 (08:28)
[2017-08-18] MEDS ORDERED: DEXTROSE 40% GEL 15 GM TUBE PO PRN ×2 (08:28)
[2017-08-18] MEDS ORDERED: OXYCODONE-ACETAMINOPHEN 5-325 MG TABLET PO PRN (09:27)
--- NOTE | 2017-08-18 09:44 | PDOC H&P ---
History of Present Illness Admission Date/PCP: 08/18/17 08:19 Patient complains of: Worsening diarrhea History of Present Illness: PRETTY OSORIO is a 56 year old female with a history of breast cancer status post left mastectomy on 07/30/2017 currently on chemotherapy, diverticulitis, arthritis presenting with worsening diarrhea since 10 PM last night. Patient tends to have some diarrhea especially following chemotherapy. Patient had chemotherapy about 2 weeks ago for her breast cancer. About 10 PM patient diarrhea worsened. She is going every 10-15 minutes. Patient is exhausted because of this. Patient has been having crampy lower abdominal pain. Patient states that this is irritating her hemorrhoids and now she is having some bright red blood in her stools. Patient states that her stool is watery. Patient denied any fevers but does have chills she states that after getting some Imodium here the stools have formed up. Per patient he did have nausea and vomiting for about 24 hours which resolved on its own. The ED patient was noted to have elevated lipase. She was mildly tachycardic but blood pressure stable. Patient C. difficile was negative. Patient was given Imodium, morphine for pain and anti-emetics. Hospitalist was called to bring patient in for observation for hydration and symptomatic management. Past Medical History Cardiac Medical History: Denies: Coronary Artery Disease, Myocardial Infarction, Hypertension Pulmonary Medical History: Reports: Pneumonia Denies: Asthma, Bronchitis, Chronic Obstructive Pulmonary Disease (COPD) Neurological Medical History: Denies: Seizures Malignancy Medical History: Reports: Breast Cancer Musculoskeltal Medical History: Reports: Arthritis - BACK, NECK, BILAT HANDS Hematology: Reports: Anemia Past Surgical History Past Surgical History: Reports: Mastectomy - Left Social History Lives with: Spouse/Significant other Smoking Status: Current Every Day Smoker Family History Family History: DM, Malignancy Parental Family History Reviewed: No Children Family History Reviewed: No Sibling(s) Family History Reviewed.: No Medication/Allergy Home Medications: Ondansetron [Ondansetron Odt] 8 mg PO DAILY PRN 07/18/17 Promethazine HCl 25 mg PO DAILY PRN 07/18/17 Oxycodone HCl/Acetaminophen [Percocet 5-325 mg Tablet] 1 tab PO ASDIR PRN #15 tablet 07/31/17 Allergies/Adverse Reactions: adhesive Allergy (Verified 08/18/17 04:44) RASH, SWELLING adhesive tape Allergy (Verified 08/18/17 04:44) RASH codeine Allergy (Verified 08/18/17 04:44) VOMITING, NEUROLICICAL ISSUES Sulfa (Sulfonamide Antibiotics) Allergy (Verified 08/18/17 04:44) Hives Review of Systems Constitutional: PRESENT: chills, fatigue. ABSENT: fever(s), headache(s), weight gain, weight loss Eyes: ABSENT: visual disturbances Ears: ABSENT: hearing changes Cardiovascular: ABSENT: chest pain, dyspnea on exertion, edema, orthropnea, palpitations Respiratory: ABSENT: cough, hemoptysis Gastrointestinal: PRESENT: abdominal pain, diarrhea, nausea. ABSENT: constipation, hematemesis, hematochezia, vomiting Genitourinary: ABSENT: dysuria, hematuria Musculoskeletal: ABSENT: joint swelling Integumentary: ABSENT: rash, wounds Neurological: ABSENT: abnormal gait, abnormal speech, confusion, dizziness, focal weakness, syncope Psychiatric: ABSENT: anxiety, depression, homidical ideation, suicidal ideation Endocrine: ABSENT: cold intolerance, heat intolerance, polydipsia, polyuria Hematologic/Lymphatic: ABSENT: easy bleeding, easy bruising Physical Exam Vital Signs: Temp Pulse Resp BP Pulse Ox 98.4 F 79 22 H 101/53 L 97 08/18/17 07:11 08/18/17 07:11 08/18/17 04:45 08/18/17 07:11 08/18/17 07:11 General appearance: PRESENT: mild distress, well-developed, well-nourished Head exam: PRESENT: normocephalic Eye exam: PRESENT: EOMI. ABSENT: scleral icterus Mouth exam: PRESENT: moist Neck exam: ABSENT: carotid bruit, JVD, lymphadenopathy, thyromegaly Respiratory exam: PRESENT: clear to auscultation matilde, other - Left breast drains. Right sided upper chest wall port.. ABSENT: rales, rhonchi, wheezes Cardiovascular exam: PRESENT: RRR. ABSENT: diastolic murmur, rubs, systolic murmur GI/Abdominal exam: PRESENT: hypoactive bowel sounds, soft, tenderness. ABSENT: distended, guarding, mass, organolmegaly, rebound Rectal exam: PRESENT: deferred Extremities exam: PRESENT: full ROM. ABSENT: calf tenderness, clubbing, pedal edema Neurological exam: PRESENT: alert, awake, oriented to person, oriented to place , oriented to time, oriented to situation, CN II-XII grossly intact. ABSENT: motor sensory deficit Psychiatric exam: PRESENT: appropriate affect, normal mood. ABSENT: homicidal ideation, suicidal ideation Skin exam: PRESENT: dry, intact, pallor, warm. ABSENT: cyanosis, rash Assessment & Plan - Diagnosis (1) Abdominal pain Qualifiers: Abdominal location: lower abdomen, unspecified Qualified Code(s): R10.30 - Lower abdominal pain, unspecified Plan: She with lower crampy abdominal pain. This is possibly due to some gastroenteritis. Will treat supportively. (2) Diarrhea Qualifiers: Diarrhea type: unspecified type Qualified Code(s): R19.7 - Diarrhea, unspecified Is this a current diagnosis for this admission?: Yes Plan: Possibly due to gastroenteritis. Patient tends to have some diarrhea at baseline. C. difficile is negative. Other stool studies are pending. Patient will be started on scheduled Lomotil. Will give aggressive hydration. (3) Pancreatitis Qualifiers: Chronicity: acute Pancreatitis type: unspecified pancreatitis type Acute pancreatitis complication: unspecified Qualified Code(s): K85.90 - Acute pancreatitis without necrosis or infection, unspecified Is this a current diagnosis for this admission?: Yes Plan: Lipase is elevated at 1020.5 however her pain is not typical for pancreatitis. She complains of lower crampy abdominal pain which is more consistent with gastroenteritis. Will continue hydration, Protonix and as needed pain medication. (4) Breast cancer, left Qualifiers: Patient sex: female Is this a current diagnosis for this admission?: Yes Plan: Patient is status post cystectomy by Dr. Jose on 07/30/2017. Patient still has drains in place. Will continue as needed pain management. (5) Bleeding hemorrhoid Is this a current diagnosis for this admission?: Yes Plan: Patient hemorrhoids irritated by diarrhea. Will see if I could order Anusol or Tucks for symptomatic management. - Time Time Spent: 30 to 50 Minutes Anticipated discharge: Home Within: within 72 hours - Inpatient Certification Medical Necessity: Need For IV Fluids, Need for Pain Control
[2017-08-18] MEDS ORDERED: GLYCERIN/WITCH HAZEL LEAF 1 EACH MED..PAD TP PRN (09:46)
[2017-08-18] MEDS ORDERED: DIPHENOXYLATE HCL/ATROP SULF 2.5-0.025 MG TABLET PO ONE (10:30)
[2017-08-18] MEDS: ENOXAPARIN SODIUM INJ 40 MG/0.4 ML DISP.SYRIN SUBCUT SCH (11:05)
[2017-08-18] MEDS: DIPHENOXYLATE HCL/ATROP SULF 2.5-0.025 MG TABLET PO SCH ×4 (11:08→21:01)
[2017-08-18] MEDS: NORMAL SALINE 1000 ML 1,000 ML IV PRN ×2 (11:10→19:18)
[2017-08-18] MEDS: PANTOPRAZOLE SODIUM 40 MG VIAL IV SCH ×2 (12:07→21:01)
[2017-08-18] MEDS ORDERED: KETOROLAC TROMETHAMINE INJ/PF 30 MG/1 ML SDV IV PRN (14:21)
[2017-08-18] MEDS ORDERED: HYDROMORPHONE HCL INJ/PF 2 MG/ML AMPULE IV PRN (14:25)
[2017-08-18] MEDS ORDERED: ACETAMINOPHEN 325 MG TABLET PO PRN (14:26)
--- NOTE | 2017-08-18 15:18 | RADIOLOGY REPORT (SQ) ---
EXAM DESCRIPTION: KUB/ABDOMEN (SINGLE VIEW) COMPLETED DATE/TIME: 08/18/2017 3:02 pm REASON FOR STUDY: pain COMPARISON: None. NUMBER OF VIEWS: One view. TECHNIQUE: Supine radiographic image of the abdomen acquired. LIMITATIONS: None. FINDINGS: BOWEL GAS PATTERN: Mild gas throughout the colon but no evidence of mechanical bowel obstr uction. CALCIFICATIONS: No suspicious calcifications. SOFT TISSUES: No gross mass or suggestion of organomegaly. HARDWARE: None in the abdomen. BONES: Osteopenic. Lumbar spondylosis. OTHER: No other significant finding. IMPRESSION: NO RADIOGRAPHIC EVIDENCE FOR ACUTE ABDOMINAL DISEASE. TECHNICAL DOCUMENTATION: JOB ID: [id number] [employer]- All Rights Reserved
[2017-08-18] MEDS ORDERED: KETOROLAC TROMETHAMINE INJ/PF 30 MG/1 ML SDV IV ONE (15:30)
--- NOTE | 2017-08-18 16:21 | RADIOLOGY REPORT (SQ) ---
EXAM DESCRIPTION: U/S ABDOMEN LIMITED W/O DOP COMPLETED DATE/TIME: 08/18/2017 4:05 pm REASON FOR STUDY: gallstones . History of breast cancer. COMPARISON: PET/CT 06/23/2017. TECHNIQUE: Grayscale images acquired of the abdomen and recorded on PACS. Additional selected color Doppler and spectral images recorded. LIMITATIONS: Overlying bowel gas. FINDINGS: PANCREAS: Partially obscured by overlying bowel gas. The visualized pancreas in the midli ne is unremarkable LIVER: The liver measures 14.5 cm. Echotexture normal. A cyst at the left hepatic lobe is measuring 1 .6 x 2.1 x 1.9 cm. LIVER VASCULATURE: Normal directional flow of the main portal vein. GALLBLADDER: Gallstone(s). No pericholecystic fluid. No wall thickening. ULTRASOUND-DETECTED WARD'S SIGN: Negative. INTRAHEPATIC DUCTS AND COMMON DUCT: CBD and intrahepatic ducts normal caliber. INFERIOR VENA CAVA: Patent. AORTA: No aneurysm in the visualized proximal and mid segments, the distal abdominal aorta was obscur ed by overlying bowel gas. RIGHT KIDNEY: Measures 10.7 cm. Normal echogenicity. No hydronephrosis. No calcifications. PERITONEAL AND RIGHT PLEURAL SPACE: No ascites or effusion. IMPRESSION: 1. Cholelithiasis with no other sonographic evidence for acute cholecystitis. 2. Small hepatic cyst. TECHNICAL DOCUMENTATION: JOB ID: [id number]- All Rights Reserved
[2017-08-19] MEDS: NORMAL SALINE 1000 ML 1,000 ML IV PRN (02:51)
[2017-08-19 08:20] LABS: ALANINE AMINOTRANSFERASE 55 U/L (9-52); ALBUMIN 2.6 g/dL (3.5-5.0); ALKALINE PHOSPHATASE 50 U/L (38-126); ANION GAP 6 (5-19); ASPARTATE AMINO TRANSFERASE 38 U/L (14-36); BILIRUBIN,DIRECT 0.1 mg/dL (0.0-0.4); BILIRUBIN,TOTAL 0.2 mg/dL (0.2-1.3); BLOOD UREA NITROGEN 6 mg/dL (7-20); CALCIUM 8.2 mg/dL (8.4-10.2); CARBON DIOXIDE 21 mmol/L (22-30); CHLORIDE 111 mmol/L (98-107); GLUCOSE 80 mg/dL (75-110); LIPASE 45.9 U/L (23-300); MAGNESIUM 1.7 mg/dL (1.6-2.3); POTASSIUM 3.2 mmol/L (3.6-5.0); SODIUM 137.6 mmol/L (137-145); TOTAL PROTEIN 4.5 g/dL (6.3-8.2)
--- NOTE | 2017-08-19 09:03 | PDOC CONSULTATION ---
Consultation Consult Date: 08/19/17 Attending physician:: KATH MARQUEZ History of Present Illness Admission Date/PCP: 08/18/17 08:19 Patient complains of: severe diarrhea and n/v, hx stage III breast ca s/p recent mastectomy History of Present Illness: 56-year-old female with history of stage III left breast cancer, she recently underwent left mastectomy post neoadjuvant chemotherapy. Prior to that she received 6 cycles of chemotherapy with carboplatin, Taxotere, Herceptin, and review of her ostectomy, she has had an excellent response with a near complete response. We saw her about 2 weeks ago when she received continued maintenance Herceptin. Every time she receives Herceptin she does have mild loose stool for 24 hours. However she began having diffuse diarrhea about 48 hours ago, and the diarrhea was very severe did not stop, was watery and patient got dehydrated and weak, at the same time patient had nausea and vomiting that was uncontrolled, and lower abdominal pain. Of note, her had similar issues with diarrhea and nausea and vomiting about 48 hours prior to her having it. That sounded like a viral gastroenteritis that he had, because in about 72 hours after having it, it seemed to have resolved and he is doing better now. Of note she does have a JEFFERSON drain in place that is now not draining much. She was planned to have that removed through [facility], but because she presented here she was not able to have that done. Past Medical History Cardiac Medical History: Denies: Coronary Artery Disease, Myocardial Infarction, Hypertension Pulmonary Medical History: Reports: Pneumonia Denies: Asthma, Bronchitis, Chronic Obstructive Pulmonary Disease (COPD) Neurological Medical History: Denies: Seizures Malignancy Medical History: Reports: Breast Cancer Musculoskeltal Medical History: Reports: Arthritis - BACK, NECK, BILAT HANDS Psychiatric Medical History: Denies: Depression Hematology: Reports: Anemia Past Surgical History Past Surgical History: Reports: Mastectomy - Left Social History Lives with: Spouse/Significant other Smoking Status: Unknown if Ever Smoked Drugs: None - Advance Directive Resuscitation Status: Full Code Family History Family History: DM, Malignancy Parental Family History Reviewed: Yes Children Family History Reviewed: Yes Sibling(s) Family History Reviewed.: Yes Medication/Allergy Home Medications: Ondansetron [Ondansetron Odt] 8 mg PO DAILY PRN 07/18/17 Promethazine HCl 25 mg PO DAILY PRN 07/18/17 Oxycodone HCl/Acetaminophen [Percocet 5-325 mg Tablet] 1 tab PO ASDIR PRN #15 tablet 07/31/17 Allergies/Adverse Reactions: adhesive Allergy (Verified 08/18/17 04:44) RASH, SWELLING adhesive tape Allergy (Verified 08/18/17 04:44) RASH codeine Allergy (Verified 08/18/17 04:44) VOMITING, NEUROLICICAL ISSUES Sulfa (Sulfonamide Antibiotics) Allergy (Verified 08/18/17 04:44) Hives Review of Systems Constitutional: PRESENT: fatigue, fever(s), weakness Cardiovascular: ABSENT: chest pain, dyspnea on exertion, edema, orthropnea, palpitations Gastrointestinal: PRESENT: abdominal pain, diarrhea, nausea, vomiting Integumentary: PRESENT: diaphoresis Neurological: ABSENT: abnormal gait, abnormal speech, confusion, dizziness, focal weakness, syncope Endocrine: PRESENT: cold intolerance Physical Exam Vital Signs: Temp Pulse Resp BP Pulse Ox 98.9 F 80 18 114/50 L 97 08/19/17 08:07 08/19/17 08:07 08/19/17 08:07 08/19/17 08:07 08/19/17 08:07 Intake & Output 08/18/17 08/19/17 08/20/17 06:59 06:59 06:59 Output Total 600 Balance -600 Weight 82.1 kg General appearance: PRESENT: no acute distress, well-developed, well-nourished Head exam: PRESENT: atraumatic, normocephalic Eye exam: PRESENT: conjunctiva pink, EOMI, PERRLA. ABSENT: scleral icterus Ear exam: PRESENT: normal external ear exam Mouth exam: PRESENT: moist, tongue midline Neck exam: ABSENT: carotid bruit, JVD, lymphadenopathy, thyromegaly Respiratory exam: PRESENT: clear to auscultation matilde. ABSENT: rales, rhonchi, wheezes Cardiovascular exam: PRESENT: RRR. ABSENT: diastolic murmur, rubs, systolic murmur Pulses: PRESENT: normal dorsalis pedis pul Vascular exam: PRESENT: normal capillary refill GI/Abdominal exam: PRESENT: normal bowel sounds, soft. ABSENT: distended, guarding, mass, organolmegaly, rebound, tenderness Rectal exam: PRESENT: deferred Extremities exam: PRESENT: full ROM. ABSENT: calf tenderness, clubbing, pedal edema Neurological exam: PRESENT: alert, awake, oriented to person, oriented to place , oriented to time, oriented to situation, CN II-XII grossly intact. ABSENT: motor sensory deficit Psychiatric exam: PRESENT: appropriate affect, normal mood. ABSENT: homicidal ideation, suicidal ideation Skin exam: PRESENT: dry, intact, warm. ABSENT: cyanosis, rash Results Laboratory Results: 08/19/17 07:27 08/19/17 07:27 Sodium 137.6 Potassium 3.2 L Chloride 111 H Carbon Dioxide 21 L Anion Gap 6 BUN 6 L Creatinine 0.61 Est GFR ( Amer) > 60 Est GFR (Non-Af Amer) > 60 Glucose 80 Calcium 8.2 L Magnesium 1.7 Total Bilirubin 0.2 AST 38 H ALT 55 H Alkaline Phosphatase 50 Total Protein 4.5 L Albumin 2.6 L Lipase 45.9 Impressions: Abdomen Ultrasound 08/18/17 00:00 IMPRESSION: 1. Cholelithiasis with no other sonographic evidence for acute cholecystitis. 2. Small hepatic cyst. KUB X-Ray 08/18/17 00:00 IMPRESSION: NO RADIOGRAPHIC EVIDENCE FOR ACUTE ABDOMINAL DISEASE. Assessment & Plan - Diagnosis (1) Diarrhea Qualifiers: Diarrhea type: infectious Qualified Code(s): A09 - Infectious gastroenteritis and colitis, unspecified Is this a current diagnosis for this admission?: Yes Plan: Most likely viral gastroenteritis, it seems to follow that, she will need supportive care continued. Because of the severe dehydration and nausea and vomiting she will probably require 24-48 hours of continuous IV hydration. I will allow hospitalist team to decide on whether to advance her diet. (2) Breast cancer, left Qualifiers: Breast location: upper outer quadrant of breast Estrogen receptor status: negative Patient sex: female Qualified Code(s): C50.412 - Malignant neoplasm of upper-outer quadrant of left female breast; Z17.1 - Estrogen receptor negative status [ER-]; Z17.1 - Estrogen receptor negative status [ER-] Is this a current diagnosis for this admission?: Yes Plan: She had mastectomy, I have discussed her case with Dr. Lyman who will see her for JEFFERSON drain removal. She will continue on maintenance Herceptin as an outpatient, will probably delay the next dose until her gastroenteritis fully resolves. - Time Time Spent: Greater than 70 Minutes - Inpatient Certification Based on my medical assessment, after consideration of the patient's comorbidities, presenting symptoms, or acuity I expect that the services needed warrant INPATIENT care.: Yes I certify that my determination is in accordance with my understanding of Medicare's requirements for reasonable and necessary INPATIENT services [42 CFR 412.3e].: Yes Medical Necessity: Failure to Improve With Outpatient Therapy, Need For IV Fluids, Risk of Complication if Not Cared For in Hospital
[2017-08-19] MEDS: DIPHENOXYLATE HCL/ATROP SULF 2.5-0.025 MG TABLET PO SCH ×4 (11:03→21:38)
[2017-08-19] MEDS: ENOXAPARIN SODIUM INJ 40 MG/0.4 ML DISP.SYRIN SUBCUT SCH (11:03)
[2017-08-19] MEDS: PANTOPRAZOLE SODIUM 40 MG VIAL IV SCH ×2 (11:03→21:38)
--- NOTE | 2017-08-19 12:45 | Physician Advisory Note ---
Physician Advisor ProgressNote .: Pursuant to the plan for [facility], I have reviewed the medical record for this patient. Physician Advisor Statement: Please consider documenting, if you agree: 1. "Acute metabolic acidosis due to GI losses" 2. "suspected protein-calorie malnutrition [state mild, mod, or severe] with BMI 27.5, very low BUN/Cr,____[?wt loss, ?appetite loss, ]" [if possible, give specifics on intake, wt loss, loss of SQ fat & muscle mass, diminished hand patient service associate strength, & clinical importance such as (A) nutritional assessment ordered, (B) modified diet or supplements ordered, (C) additional labs ordered, (D) prolonged wound healing time, (E) delayed infxn clearance] 3. "Recent Lt Mastectomy (not cystectomy)" 4. Medical necessity: If pt cannot be d/c'd today, please make clinical reasons clear (today & each day), such as: "pt continues unable to keep down adequate diet", "transaminases are worsened today & need f/u &/or more w/u", "persistent acute metabolic acidosis", "I AM CONCERNED about " Status: This is not the typical gastroenteritis pt who can receive 1-2L IVF and be expected to bounce back ready to go home the next day. She already shows signs of underlying malnutrition, has underlying breast CA requiring recent chemotx & mastectomy, and has become that much more intravascularly depleted from her N/V + persistent severe Diarrhea. She has only today been advanced to clear liquid diet, and has not yet shown toleration of this, much less ability to take in enough to keep her from becoming dehydrated again if not on IVF. If attending agrees, pt is appropriate to change to Inpatient status w/documentation of reasons as above. Thanks! CK
--- NOTE | 2017-08-19 15:03 | PDOC PROGRESS REPORT ---
Subjective Progress Note for:: 08/19/17 Subjective:: Patient refers that her had similar symptoms and then she started having diarrhea. She states that the diarrheal movements are better. At the present time she is starving. Review of system all organ systems evaluated and negative except as in subjective All laboratories and significant diagnostics have been reviewed Reason For Visit: VOMITING AND DIARRHEA Physical Exam Vital Signs: Temp Pulse Resp BP Pulse Ox 98.9 F 80 18 114/50 L 97 08/19/17 08:07 08/19/17 08:07 08/19/17 08:07 08/19/17 08:07 08/19/17 08:07 Intake & Output 08/18/17 08/19/17 08/20/17 06:59 06:59 06:59 Output Total 600 Balance -600 Weight 82.1 kg General appearance: PRESENT: no acute distress, cooperative, other - Chronically ill looking Head exam: PRESENT: atraumatic, normocephalic Eye exam: PRESENT: EOMI, PERRLA Ear exam: PRESENT: normal external ear exam Mouth exam: PRESENT: moist Neck exam: PRESENT: full ROM. ABSENT: JVD, lymphadenopathy Respiratory exam: PRESENT: clear to auscultation matilde Cardiovascular exam: PRESENT: RRR. ABSENT: diastolic murmur, systolic murmur Vascular exam: PRESENT: normal capillary refill GI/Abdominal exam: PRESENT: normal bowel sounds, soft. ABSENT: tenderness Extremities exam: PRESENT: full ROM. ABSENT: clubbing, pedal edema Musculoskeletal exam: PRESENT: ambulatory Neurological exam: PRESENT: alert, awake, oriented to person, oriented to place , oriented to time, oriented to situation, CN II-XII grossly intact Psychiatric exam: PRESENT: appropriate affect, normal mood Skin exam: PRESENT: intact, pallor Results Laboratory Results: 08/19/17 07:27 08/19/17 07:27 Sodium 137.6 Potassium 3.2 L Chloride 111 H Carbon Dioxide 21 L Anion Gap 6 BUN 6 L Creatinine 0.61 Est GFR ( Amer) > 60 Est GFR (Non-Af Amer) > 60 Glucose 80 Calcium 8.2 L Magnesium 1.7 Total Bilirubin 0.2 AST 38 H ALT 55 H Alkaline Phosphatase 50 Total Protein 4.5 L Albumin 2.6 L Lipase 45.9 Impressions: Abdomen Ultrasound 08/18/17 00:00 IMPRESSION: 1. Cholelithiasis with no other sonographic evidence for acute cholecystitis. 2. Small hepatic cyst. KUB X-Ray 08/18/17 00:00 IMPRESSION: NO RADIOGRAPHIC EVIDENCE FOR ACUTE ABDOMINAL DISEASE. Assessment & Plan - Diagnosis (1) Metabolic acidosis Is this a current diagnosis for this admission?: Yes Plan: Due to GI losses. Mild (2) Diarrhea Qualifiers: Diarrhea type: infectious Qualified Code(s): A09 - Infectious gastroenteritis and colitis, unspecified Is this a current diagnosis for this admission?: Yes Plan: Appears to be viral. Improving. To add lactobacillus and Metamucil (3) Pancreatitis Qualifiers: Chronicity: acute Pancreatitis type: unspecified pancreatitis type Acute pancreatitis complication: unspecified Qualified Code(s): K85.90 - Acute pancreatitis without necrosis or infection, unspecified Is this a current diagnosis for this admission?: Yes Plan: Due to viral illness. (4) Hx of breast cancer Is this a current diagnosis for this admission?: Yes Plan: Being followed up by Dr. Shanks (5) Moderate protein-calorie malnutrition Is this a current diagnosis for this admission?: Yes (6) Hypokalemia Is this a current diagnosis for this admission?: Yes Plan: Due to GI losses. To replace p.o. and and IV. To trend - Time Time Spent with patient: 15-24 minutes Medications reviewed and adjusted accordingly: Yes Anticipated discharge: Home Within: within 48 hours - Inpatient Certification Based on my medical assessment, after consideration of the patient's comorbidities, presenting symptoms, or acuity I expect that the services needed warrant INPATIENT care.: Yes I certify that my determination is in accordance with my understanding of Medicare's requirements for reasonable and necessary INPATIENT services [42 CFR 412.3e].: Yes Medical Necessity: Need Close Monitoring Due to Risk of Patient Decompensation, Need For IV Fluids
[2017-08-19] MEDS ORDERED: ACETAMINOPHEN 325 MG TABLET PO PRN (15:30)
[2017-08-19] MEDS ORDERED: ONDANSETRON HCL INJ/PF 4 MG/2 ML SDV IV PRN (15:30)
[2017-08-19] MEDS ORDERED: POTASSIUM CHLORIDE 10 MEQ TABLET.SA PO ONE (15:30)
[2017-08-19] MEDS ORDERED: PROMETHAZINE HCL INJ 25 MG/1 ML VIAL IV PRN (15:30)
[2017-08-19] MEDS: LACTOBACILLUS ACIDOPHILUS 250 MG TAB PO SCH (17:16)
[2017-08-19] MEDS: POTASSI CL 40 MEQ/NS 1L 1,000 ML IV PRN (17:17)
[2017-08-19] MEDS: PSYLLIUM SEED-SF 5.85 GM PACKET PO SCH (18:43)
[2017-08-20] MEDS: POTASSI CL 40 MEQ/NS 1L 1,000 ML IV PRN ×2 (03:47→15:04)
[2017-08-20 06:10] LABS: ABSOLUTE EOSINOPHILS # (AUTO) 0.2 10^3/uL (0.0-0.6); ABSOLUTE LYMPHOCYTES (AUTO) 1.7 10^3/uL (0.5-4.7); ABSOLUTE MONOCYTES (AUTO) 0.5 10^3/uL (0.1-1.4); ABSOLUTE NEUT (AUTO) 2.1 10^3/uL (1.7-8.2); BASOPHILS % (AUTO) 0.6 % (0-2); EOSINOPHILS % (AUTO) 4.1 % (0-6); HEMATOCRIT 32.4 % (36.0-47.0); LYMPHOCYTES % (AUTO) 36.8 % (13-45); MEAN CORPUSCULAR HEMOGLOBIN 33.1 pg (27.0-33.4); MEAN CORPUSCULAR HGB CONC 34.8 g/dL (32.0-36.0); MEAN CORPUSCULAR VOLUME 95 fl (80-97); PLATELET COUNT 185 10^3/uL (150-450); RED BLOOD COUNT 3.42 10^6/uL (3.72-5.28); RED CELL DISTRIBUTION WIDTH 13.8 % (11.5-14.0); SEGMENTED NEUTROPHILS % (AUTO) 46.5 % (42-78); TOTAL CELLS COUNTED % (AUTO) 100 %; WHITE BLOOD COUNT 4.5 10^3/uL (4.0-10.5)
[2017-08-20 06:17] LABS: HEMOGLOBIN 11.3 g/dL (12.0-15.5)
[2017-08-20 06:20] LABS: ANION GAP 7 (5-19); CALCIUM 8.4 mg/dL (8.4-10.2); CARBON DIOXIDE 22 mmol/L (22-30); CHLORIDE 112 mmol/L (98-107); GLUCOSE 91 mg/dL (75-110); LIPASE 327.3 U/L (23-300); MAGNESIUM 1.8 mg/dL (1.6-2.3); POTASSIUM 3.7 mmol/L (3.6-5.0); SODIUM 141.2 mmol/L (137-145)
[2017-08-20 06:22] LABS: BLOOD UREA NITROGEN < 2 mg/dL (7-20)
--- NOTE | 2017-08-20 08:35 | PDOC PROGRESS REPORT ---
Subjective Progress Note for:: 08/20/17 Subjective:: Pt doing better, still having watery stool q 2 hours, wants to see if diet can be advanced today, I will advance to full liquids from clears. Lipase down to 327. Reason For Visit: ACUTE PANCREATITIS,METABOLIC ACIDOSIS,DIARRHEA Physical Exam Vital Signs: Temp Pulse Resp BP Pulse Ox 98.0 F 63 18 99/52 L 96 08/20/17 04:39 08/20/17 04:39 08/20/17 04:39 08/20/17 04:39 08/20/17 04:39 Intake & Output 08/19/17 08/20/17 08/21/17 06:59 06:59 06:59 Intake Total 1500 Balance 1500 Weight 81.1 kg General appearance: PRESENT: no acute distress Head exam: PRESENT: atraumatic Mouth exam: PRESENT: dry mucosa Respiratory exam: ABSENT: chest wall tenderness, clear to auscultation matilde, crackles, decreased breath sounds, prolonged expiratory phas, rales, retraction , rhonchi, stridor, symmetrical, tachypnea, unlabored, wheezes, other Cardiovascular exam: PRESENT: RRR. ABSENT: diastolic murmur, rubs, systolic murmur GI/Abdominal exam: PRESENT: tenderness Rectal exam: PRESENT: deferred Musculoskeletal exam: PRESENT: ambulatory Neurological exam: PRESENT: alert, awake, oriented to person, oriented to place , oriented to time, oriented to situation, CN II-XII grossly intact. ABSENT: motor sensory deficit Results Laboratory Results: 08/20/17 05:50 08/20/17 05:50 08/20/17 08/20/17 05:50 05:50 WBC 4.5 RBC 3.42 L Hgb 11.3 L D Hct 32.4 L MCV 95 MCH 33.1 MCHC 34.8 RDW 13.8 Plt Count 185 Seg Neutrophils % 46.5 Lymphocytes % 36.8 Monocytes % 12.0 Eosinophils % 4.1 Basophils % 0.6 Absolute Neutrophils 2.1 Absolute Lymphocytes 1.7 Absolute Monocytes 0.5 Absolute Eosinophils 0.2 Absolute Basophils 0.0 Sodium 141.2 Potassium 3.7 Chloride 112 H Carbon Dioxide 22 Anion Gap 7 BUN < 2 L Creatinine 0.57 Est GFR ( Amer) > 60 Est GFR (Non-Af Amer) > 60 Glucose 91 Calcium 8.4 Magnesium 1.8 Lipase 327.3 H Impressions: Abdomen Ultrasound 08/18/17 00:00 IMPRESSION: 1. Cholelithiasis with no other sonographic evidence for acute cholecystitis. 2. Small hepatic cyst. KUB X-Ray 08/18/17 00:00 IMPRESSION: NO RADIOGRAPHIC EVIDENCE FOR ACUTE ABDOMINAL DISEASE. Assessment & Plan - Diagnosis (1) Diarrhea Qualifiers: Diarrhea type: infectious Qualified Code(s): A09 - Infectious gastroenteritis and colitis, unspecified Is this a current diagnosis for this admission?: Yes Plan: 2nd viral gastroenteritis, diarrhea still severe, still unable to keep up w/ fluids by oral alone, cont aggressive hydration and supportive care (2) Breast cancer, left Qualifiers: Breast location: upper outer quadrant of breast Estrogen receptor status: negative Patient sex: female Qualified Code(s): C50.412 - Malignant neoplasm of upper-outer quadrant of left female breast; Z17.1 - Estrogen receptor negative status [ER-]; Z17.1 - Estrogen receptor negative status [ER-] Is this a current diagnosis for this admission?: Yes Plan: Drain removed, pt will get adjuvant herceptin as outpt but will not resume until gastroenteritis fully resolved. - Time Time Spent with patient: 35 or more minutes - Inpatient Certification Based on my medical assessment, after consideration of the patient's comorbidities, presenting symptoms, or acuity I expect that the services needed warrant INPATIENT care.: Yes I certify that my determination is in accordance with my understanding of Medicare's requirements for reasonable and necessary INPATIENT services [42 CFR 412.3e].: Yes Medical Necessity: Failure to Improve With Outpatient Therapy, Need For IV Fluids, Risk of Complication if Not Cared For in Hospital
[2017-08-20] MEDS: PANTOPRAZOLE SODIUM 40 MG VIAL IV SCH ×2 (10:46→21:49)
[2017-08-20] MEDS: DIPHENOXYLATE HCL/ATROP SULF 2.5-0.025 MG TABLET PO SCH ×4 (10:47→21:49)
[2017-08-20] MEDS: LACTOBACILLUS ACIDOPHILUS 250 MG TAB PO SCH ×2 (10:47→17:09)
[2017-08-20] MEDS: PSYLLIUM SEED-SF 5.85 GM PACKET PO SCH ×2 (10:57→17:01)
[2017-08-20] MEDS: ENOXAPARIN SODIUM INJ 40 MG/0.4 ML DISP.SYRIN SUBCUT SCH (13:02)
--- NOTE | 2017-08-20 18:00 | PDOC PROGRESS REPORT ---
Subjective Progress Note for:: 08/20/17 Subjective:: Patient recently admitted with gastroenteritis. Noted with evidence of gallstone pancreatitis. She has had marked improvement of her symptoms. although she still has some abdominal distention and some abdominal discomfort. Ultrasound demonstrated cholelithiasis. Reason For Visit: ACUTE PANCREATITIS,METABOLIC ACIDOSIS,DIARRHEA Physical Exam Vital Signs: Temp Pulse Resp BP Pulse Ox 98.1 F 68 16 107/53 L 97 08/20/17 15:26 08/20/17 15:26 08/20/17 15:26 08/20/17 15:26 08/20/17 15:26 Intake & Output 08/19/17 08/20/17 08/21/17 06:59 06:59 06:59 Intake Total 1500 Balance 1500 Weight 81.1 kg General appearance: PRESENT: no acute distress, cooperative GI/Abdominal exam: PRESENT: other - Soft mildly distended. Mild focal tenderness in the right upper quadrant without peritoneal signs. Results Laboratory Results: 08/20/17 05:50 08/20/17 05:50 08/20/17 08/20/17 05:50 05:50 WBC 4.5 RBC 3.42 L Hgb 11.3 L D Hct 32.4 L MCV 95 MCH 33.1 MCHC 34.8 RDW 13.8 Plt Count 185 Seg Neutrophils % 46.5 Lymphocytes % 36.8 Monocytes % 12.0 Eosinophils % 4.1 Basophils % 0.6 Absolute Neutrophils 2.1 Absolute Lymphocytes 1.7 Absolute Monocytes 0.5 Absolute Eosinophils 0.2 Absolute Basophils 0.0 Sodium 141.2 Potassium 3.7 Chloride 112 H Carbon Dioxide 22 Anion Gap 7 BUN < 2 L Creatinine 0.57 Est GFR ( Amer) > 60 Est GFR (Non-Af Amer) > 60 Glucose 91 Calcium 8.4 Magnesium 1.8 Lipase 327.3 H Impressions: Abdomen Ultrasound 08/18/17 00:00 IMPRESSION: 1. Cholelithiasis with no other sonographic evidence for acute cholecystitis. 2. Small hepatic cyst. KUB X-Ray 08/18/17 00:00 IMPRESSION: NO RADIOGRAPHIC EVIDENCE FOR ACUTE ABDOMINAL DISEASE. Assessment & Plan - Diagnosis (1) Biliary acute pancreatitis Is this a current diagnosis for this admission?: Yes Plan: I had a conversation with the patient concerning her management. I have recommended to her staying in the hospital and having her laparoscopic cholecystectomy prior to discharge. She is agreeable. We will keep her in the hospital keep her on clear liquids. make her n.p.o. tomorrow night for lap gayle on morning.
--- NOTE | 2017-08-20 18:25 | PDOC PROGRESS REPORT ---
Subjective Progress Note for:: 08/20/17 Subjective:: Patient is feeling well and tolerating food No diarrhea Reason For Visit: ACUTE PANCREATITIS,METABOLIC ACIDOSIS,DIARRHEA Physical Exam Vital Signs: Temp Pulse Resp BP Pulse Ox 98.1 F 68 16 107/53 L 97 08/20/17 15:26 08/20/17 15:26 08/20/17 15:26 08/20/17 15:26 08/20/17 15:26 Intake & Output 08/19/17 08/20/17 08/21/17 00:59 00:59 00:59 Intake Total 1500 Balance 1500 Weight 81.1 kg General appearance: PRESENT: no acute distress, well-developed, well-nourished Head exam: PRESENT: atraumatic, normocephalic Eye exam: PRESENT: conjunctiva pink, EOMI, PERRLA. ABSENT: scleral icterus Ear exam: PRESENT: normal external ear exam Mouth exam: PRESENT: moist, tongue midline Neck exam: ABSENT: carotid bruit, JVD, lymphadenopathy, thyromegaly Respiratory exam: PRESENT: clear to auscultation matilde. ABSENT: rales, rhonchi, wheezes Cardiovascular exam: PRESENT: RRR. ABSENT: diastolic murmur, rubs, systolic murmur Pulses: PRESENT: normal dorsalis pedis pul Vascular exam: PRESENT: normal capillary refill GI/Abdominal exam: PRESENT: normal bowel sounds, soft. ABSENT: distended, guarding, mass, organolmegaly, rebound, tenderness Rectal exam: PRESENT: deferred Extremities exam: PRESENT: full ROM. ABSENT: calf tenderness, clubbing, pedal edema Neurological exam: PRESENT: alert, awake, oriented to person, oriented to place , oriented to time, oriented to situation, CN II-XII grossly intact. ABSENT: motor sensory deficit Psychiatric exam: PRESENT: appropriate affect, normal mood Skin exam: PRESENT: dry, intact, warm. ABSENT: cyanosis, rash Results Laboratory Results: 08/20/17 05:50 08/20/17 05:50 08/20/17 08/20/17 05:50 05:50 WBC 4.5 RBC 3.42 L Hgb 11.3 L D Hct 32.4 L MCV 95 MCH 33.1 MCHC 34.8 RDW 13.8 Plt Count 185 Seg Neutrophils % 46.5 Lymphocytes % 36.8 Monocytes % 12.0 Eosinophils % 4.1 Basophils % 0.6 Absolute Neutrophils 2.1 Absolute Lymphocytes 1.7 Absolute Monocytes 0.5 Absolute Eosinophils 0.2 Absolute Basophils 0.0 Sodium 141.2 Potassium 3.7 Chloride 112 H Carbon Dioxide 22 Anion Gap 7 BUN < 2 L Creatinine 0.57 Est GFR ( Amer) > 60 Est GFR (Non-Af Amer) > 60 Glucose 91 Calcium 8.4 Magnesium 1.8 Lipase 327.3 H Impressions: Abdomen Ultrasound 08/18/17 00:00 IMPRESSION: 1. Cholelithiasis with no other sonographic evidence for acute cholecystitis. 2. Small hepatic cyst. KUB X-Ray 08/18/17 00:00 IMPRESSION: NO RADIOGRAPHIC EVIDENCE FOR ACUTE ABDOMINAL DISEASE. Assessment & Plan - Diagnosis (1) Gallstone pancreatitis Is this a current diagnosis for this admission?: Yes Plan: Resolving Surgical consult was obtained Patient will undergo cholecystectomy prior to discharge (2) Gastroenteritis Is this a current diagnosis for this admission?: Yes Plan: Resolved Continue light diet - Time Time Spent with patient: 25-34 minutes
[2017-08-21] MEDS: POTASSI CL 40 MEQ/NS 1L 1,000 ML IV PRN (02:13)
--- NOTE | 2017-08-21 08:09 | PDOC PROGRESS REPORT ---
Subjective Progress Note for:: 08/21/17 Subjective:: No acute events overnight. Dr. Reich is planning lap gayle. Today I explained rational behind that at length to pt and she is agreeable to this approach. It makes sense that she may have had both viral gastroenteritis as well gallstone pancreatitis on going, to cause the lab abnormalities, so it is appropriate to consider lap gayle now rather than waiting for another event to happen. Reason For Visit: ACUTE PANCREATITIS,METABOLIC ACIDOSIS,DIARRHEA Physical Exam Vital Signs: Temp Pulse Resp BP Pulse Ox 98.3 F 74 15 116/46 L 99 08/21/17 04:08 08/21/17 04:08 08/21/17 04:08 08/21/17 04:08 08/21/17 04:08 Intake & Output 08/20/17 08/21/17 08/22/17 06:59 06:59 06:59 Intake Total 1500 500 Balance 1500 500 Weight 81.1 kg 81.4 kg General appearance: PRESENT: no acute distress, well-developed, well-nourished Head exam: PRESENT: atraumatic, normocephalic Eye exam: PRESENT: conjunctiva pink, EOMI, PERRLA. ABSENT: scleral icterus Ear exam: PRESENT: normal external ear exam Mouth exam: PRESENT: moist, tongue midline Neck exam: ABSENT: carotid bruit, JVD, lymphadenopathy, thyromegaly Respiratory exam: PRESENT: clear to auscultation matilde. ABSENT: rales, rhonchi, wheezes Cardiovascular exam: PRESENT: RRR. ABSENT: diastolic murmur, rubs, systolic murmur Pulses: PRESENT: normal dorsalis pedis pul Vascular exam: PRESENT: normal capillary refill GI/Abdominal exam: PRESENT: normal bowel sounds, soft. ABSENT: distended, guarding, mass, organolmegaly, rebound, tenderness Rectal exam: PRESENT: deferred Extremities exam: PRESENT: full ROM. ABSENT: calf tenderness, clubbing, pedal edema Neurological exam: PRESENT: alert, awake, oriented to person, oriented to place , oriented to time, oriented to situation, CN II-XII grossly intact. ABSENT: motor sensory deficit Psychiatric exam: PRESENT: appropriate affect, normal mood. ABSENT: homicidal ideation, suicidal ideation Skin exam: PRESENT: dry, intact, warm. ABSENT: cyanosis, rash Results Laboratory Results: 08/20/17 05:50 08/20/17 05:50 Impressions: Abdomen Ultrasound 08/18/17 00:00 IMPRESSION: 1. Cholelithiasis with no other sonographic evidence for acute cholecystitis. 2. Small hepatic cyst. KUB X-Ray 08/18/17 00:00 IMPRESSION: NO RADIOGRAPHIC EVIDENCE FOR ACUTE ABDOMINAL DISEASE. Assessment & Plan - Diagnosis (1) Diarrhea Qualifiers: Diarrhea type: infectious Qualified Code(s): A09 - Infectious gastroenteritis and colitis, unspecified Is this a current diagnosis for this admission?: Yes Plan: Possible multifactorial, improving, con't per surgery and other supportive care. (2) Breast cancer, left Qualifiers: Breast location: upper outer quadrant of breast Estrogen receptor status: negative Patient sex: female Qualified Code(s): C50.412 - Malignant neoplasm of upper-outer quadrant of left female breast; Z17.1 - Estrogen receptor negative status [ER-]; Z17.1 - Estrogen receptor negative status [ER-] Is this a current diagnosis for this admission?: Yes Plan: Herceptin on hold until pt improves. (3) Gallstone pancreatitis Is this a current diagnosis for this admission?: Yes Plan: Planned for lap gayle - Time Time Spent with patient: 35 or more minutes Total Critical Time (Minutes): 40 - Inpatient Certification Based on my medical assessment, after consideration of the patient's comorbidities, presenting symptoms, or acuity I expect that the services needed warrant INPATIENT care.: Yes I certify that my determination is in accordance with my understanding of Medicare's requirements for reasonable and necessary INPATIENT services [42 CFR 412.3e].: Yes Medical Necessity: Need For IV Fluids, Need for Surgery
[2017-08-21] MEDS ORDERED: MUPIROCIN 2% OINTMENT 22 GM TP ONE (11:00)
[2017-08-21] MEDS: ENOXAPARIN SODIUM INJ 40 MG/0.4 ML DISP.SYRIN SUBCUT SCH (11:05)
[2017-08-21] MEDS: LACTOBACILLUS ACIDOPHILUS 250 MG TAB PO SCH ×2 (11:05→18:04)
[2017-08-21] MEDS: DIPHENOXYLATE HCL/ATROP SULF 2.5-0.025 MG TABLET PO SCH ×4 (11:05→22:11)
--- NOTE | 2017-08-21 11:07 | PDOC PROGRESS REPORT ---
Subjective Progress Note for:: 08/21/17 Subjective:: Patient is asymptomatic Nausea vomiting diarrhea have resolved no abdominal pain She is scheduled for lap gayle tomorrow Reason For Visit: ACUTE PANCREATITIS,METABOLIC ACIDOSIS,DIARRHEA Physical Exam Vital Signs: Temp Pulse Resp BP Pulse Ox 98.7 F 65 18 118/75 99 08/21/17 09:17 08/21/17 09:17 08/21/17 09:17 08/21/17 09:17 08/21/17 09:17 Intake & Output 08/20/17 08/21/17 08/22/17 00:59 00:59 00:59 Intake Total 1500 500 Balance 1500 500 Weight 81.1 kg 81.4 kg General appearance: PRESENT: no acute distress, well-developed, well-nourished Head exam: PRESENT: atraumatic, normocephalic Eye exam: PRESENT: conjunctiva pink, EOMI, PERRLA. ABSENT: scleral icterus Ear exam: PRESENT: normal external ear exam Mouth exam: PRESENT: moist, tongue midline Neck exam: ABSENT: carotid bruit, JVD, lymphadenopathy, thyromegaly Respiratory exam: PRESENT: clear to auscultation matilde. ABSENT: rales, rhonchi, wheezes Cardiovascular exam: PRESENT: RRR. ABSENT: diastolic murmur, rubs, systolic murmur Pulses: PRESENT: normal dorsalis pedis pul Vascular exam: PRESENT: normal capillary refill GI/Abdominal exam: PRESENT: normal bowel sounds, soft. ABSENT: distended, guarding, mass, organolmegaly, rebound, tenderness Rectal exam: PRESENT: deferred Extremities exam: PRESENT: full ROM. ABSENT: calf tenderness, clubbing, pedal edema Neurological exam: PRESENT: alert, awake, oriented to person, oriented to place , oriented to time, oriented to situation, CN II-XII grossly intact. ABSENT: motor sensory deficit Psychiatric exam: PRESENT: appropriate affect, normal mood Skin exam: PRESENT: dry, intact Results Laboratory Results: 08/20/17 05:50 08/20/17 05:50 Impressions: Abdomen Ultrasound 08/18/17 00:00 IMPRESSION: 1. Cholelithiasis with no other sonographic evidence for acute cholecystitis. 2. Small hepatic cyst. KUB X-Ray 08/18/17 00:00 IMPRESSION: NO RADIOGRAPHIC EVIDENCE FOR ACUTE ABDOMINAL DISEASE. Assessment & Plan - Diagnosis (1) Gallstone pancreatitis Is this a current diagnosis for this admission?: Yes (2) Gastroenteritis Is this a current diagnosis for this admission?: Yes (3) Hx of breast cancer Is this a current diagnosis for this admission?: Yes - Time Time Spent with patient: Surgery tomorrow Patient likely will be discharged the following day Time Spent with patient: 25-34 minutes
[2017-08-21] MEDS: PSYLLIUM SEED-SF 5.85 GM PACKET PO SCH ×2 (11:48→18:05)
[2017-08-21] MEDS: MUPIROCIN 2% OINTMENT 22 GM TP SCH (18:04)
[2017-08-22 06:07] LABS: ABSOLUTE EOSINOPHILS # (AUTO) 0.3 10^3/uL (0.0-0.6); ABSOLUTE LYMPHOCYTES (AUTO) 2.8 10^3/uL (0.5-4.7); ABSOLUTE MONOCYTES (AUTO) 0.4 10^3/uL (0.1-1.4); BASOPHILS % (AUTO) 0.7 % (0-2); EOSINOPHILS % (AUTO) 5.1 % (0-6); LYMPHOCYTES % (AUTO) 49.8 % (13-45); MEAN CORPUSCULAR HEMOGLOBIN 32.4 pg (27.0-33.4); MEAN CORPUSCULAR HGB CONC 34.1 g/dL (32.0-36.0); MEAN CORPUSCULAR VOLUME 95 fl (80-97); MONOCYTES % (AUTO) 7.9 % (3-13); PLATELET COUNT 274 10^3/uL (150-450); RED BLOOD COUNT 4.01 10^6/uL (3.72-5.28); RED CELL DISTRIBUTION WIDTH 13.5 % (11.5-14.0); SEGMENTED NEUTROPHILS % (AUTO) 36.5 % (42-78); TOTAL CELLS COUNTED % (AUTO) 100 %; WHITE BLOOD COUNT 5.5 10^3/uL (4.0-10.5)
[2017-08-22 06:19] LABS: ANION GAP 7 (5-19); BLOOD UREA NITROGEN 4 mg/dL (7-20); CALCIUM 9.3 mg/dL (8.4-10.2); CARBON DIOXIDE 30 mmol/L (22-30); CHLORIDE 106 mmol/L (98-107); GLUCOSE 88 mg/dL (75-110); POTASSIUM 3.9 mmol/L (3.6-5.0); SODIUM 142.7 mmol/L (137-145)
--- NOTE | 2017-08-22 08:51 | PDOC PROGRESS REPORT ---
Subjective Progress Note for:: 08/22/17 Subjective:: Feels much better. Still has some right upper quadrant abdominal discomfort. Reason For Visit: ACUTE PANCREATITIS,METABOLIC ACIDOSIS,DIARRHEA Physical Exam Vital Signs: Temp Pulse Resp BP Pulse Ox 97.8 F 61 18 101/47 L 94 08/22/17 03:29 08/22/17 03:29 08/22/17 03:29 08/22/17 03:29 08/22/17 03:29 Intake & Output 08/21/17 08/22/17 08/23/17 06:59 06:59 06:59 Intake Total 500 400 Balance 500 400 Weight 81.4 kg General appearance: PRESENT: no acute distress, cooperative Respiratory exam: PRESENT: clear to auscultation matilde Cardiovascular exam: PRESENT: RRR GI/Abdominal exam: PRESENT: other - Soft, nondistended, mild tenderness in the right upper quadrant. No peritoneal signs Results Laboratory Results: 08/22/17 05:52 08/22/17 05:52 08/22/17 08/22/17 05:52 05:52 WBC 5.5 RBC 4.01 Hgb 13.0 Hct 38.0 MCV 95 MCH 32.4 MCHC 34.1 RDW 13.5 Plt Count 274 Seg Neutrophils % 36.5 L Lymphocytes % 49.8 H Monocytes % 7.9 Eosinophils % 5.1 Basophils % 0.7 Absolute Neutrophils 2.0 Absolute Lymphocytes 2.8 Absolute Monocytes 0.4 Absolute Eosinophils 0.3 Absolute Basophils 0.0 Sodium 142.7 Potassium 3.9 Chloride 106 Carbon Dioxide 30 Anion Gap 7 BUN 4 L Creatinine 0.57 Est GFR ( Amer) > 60 Est GFR (Non-Af Amer) > 60 Glucose 88 Calcium 9.3 Impressions: Abdomen Ultrasound 08/18/17 00:00 IMPRESSION: 1. Cholelithiasis with no other sonographic evidence for acute cholecystitis. 2. Small hepatic cyst. KUB X-Ray 08/18/17 00:00 IMPRESSION: NO RADIOGRAPHIC EVIDENCE FOR ACUTE ABDOMINAL DISEASE. Assessment & Plan - Diagnosis (1) Biliary acute pancreatitis Is this a current diagnosis for this admission?: Yes (2) Gallstone pancreatitis Is this a current diagnosis for this admission?: Yes Plan: Pancreatitis has improved. We will plan laparoscopic cholecystectomy with possible intraoperative cholangiogram. I have discussed with the patient the risk and benefits of the procedure including risk of bile duct injury, intestinal injury, bleeding, infection, conversion to open procedure, and pancreatitis. Patient understands and agrees to proceed.
--- NOTE | 2017-08-22 09:00 | PDOC PROGRESS REPORT ---
Subjective Progress Note for:: 08/22/17 Subjective:: No acute events, awaiting surgery Reason For Visit: ACUTE PANCREATITIS,METABOLIC ACIDOSIS,DIARRHEA Physical Exam Vital Signs: Temp Pulse Resp BP Pulse Ox 97.8 F 61 18 101/47 L 94 08/22/17 03:29 08/22/17 03:29 08/22/17 03:29 08/22/17 03:29 08/22/17 03:29 Intake & Output 08/21/17 08/22/17 08/23/17 06:59 06:59 06:59 Intake Total 500 400 Balance 500 400 Weight 81.4 kg General appearance: PRESENT: no acute distress, well-developed, well-nourished Head exam: PRESENT: atraumatic, normocephalic Eye exam: PRESENT: conjunctiva pink, EOMI, PERRLA. ABSENT: scleral icterus Ear exam: PRESENT: normal external ear exam Mouth exam: PRESENT: moist, tongue midline Neck exam: ABSENT: carotid bruit, JVD, lymphadenopathy, thyromegaly Respiratory exam: PRESENT: clear to auscultation matilde. ABSENT: rales, rhonchi, wheezes Cardiovascular exam: PRESENT: RRR. ABSENT: diastolic murmur, rubs, systolic murmur Pulses: PRESENT: normal dorsalis pedis pul Vascular exam: PRESENT: normal capillary refill GI/Abdominal exam: PRESENT: normal bowel sounds, soft. ABSENT: distended, guarding, mass, organolmegaly, rebound, tenderness Rectal exam: PRESENT: deferred Extremities exam: PRESENT: full ROM. ABSENT: calf tenderness, clubbing, pedal edema Neurological exam: PRESENT: alert, awake, oriented to person, oriented to place , oriented to time, oriented to situation, CN II-XII grossly intact. ABSENT: motor sensory deficit Psychiatric exam: PRESENT: appropriate affect, normal mood. ABSENT: homicidal ideation, suicidal ideation Skin exam: PRESENT: dry, intact, warm. ABSENT: cyanosis, rash Results Laboratory Results: 08/22/17 05:52 08/22/17 05:52 08/22/17 08/22/17 05:52 05:52 WBC 5.5 RBC 4.01 Hgb 13.0 Hct 38.0 MCV 95 MCH 32.4 MCHC 34.1 RDW 13.5 Plt Count 274 Seg Neutrophils % 36.5 L Lymphocytes % 49.8 H Monocytes % 7.9 Eosinophils % 5.1 Basophils % 0.7 Absolute Neutrophils 2.0 Absolute Lymphocytes 2.8 Absolute Monocytes 0.4 Absolute Eosinophils 0.3 Absolute Basophils 0.0 Sodium 142.7 Potassium 3.9 Chloride 106 Carbon Dioxide 30 Anion Gap 7 BUN 4 L Creatinine 0.57 Est GFR ( Amer) > 60 Est GFR (Non-Af Amer) > 60 Glucose 88 Calcium 9.3 Impressions: Abdomen Ultrasound 08/18/17 00:00 IMPRESSION: 1. Cholelithiasis with no other sonographic evidence for acute cholecystitis. 2. Small hepatic cyst. KUB X-Ray 08/18/17 00:00 IMPRESSION: NO RADIOGRAPHIC EVIDENCE FOR ACUTE ABDOMINAL DISEASE. Assessment & Plan - Diagnosis (1) Diarrhea Qualifiers: Diarrhea type: infectious Qualified Code(s): A09 - Infectious gastroenteritis and colitis, unspecified Is this a current diagnosis for this admission?: Yes Plan: Improved (2) Breast cancer, left Qualifiers: Breast location: upper outer quadrant of breast Estrogen receptor status: negative Patient sex: female Qualified Code(s): C50.412 - Malignant neoplasm of upper-outer quadrant of left female breast; Z17.1 - Estrogen receptor negative status [ER-]; Z17.1 - Estrogen receptor negative status [ER-] Is this a current diagnosis for this admission?: Yes Plan: Herceptin will cont as outpt (3) Gallstone pancreatitis Is this a current diagnosis for this admission?: Yes Plan: Surgery planned today per Dr. Reich
[2017-08-22] MEDS: PSYLLIUM SEED-SF 5.85 GM PACKET PO SCH ×2 (09:11→17:16)
[2017-08-22] MEDS: LACTOBACILLUS ACIDOPHILUS 250 MG TAB PO SCH ×2 (09:11→17:11)
[2017-08-22] MEDS: DIPHENOXYLATE HCL/ATROP SULF 2.5-0.025 MG TABLET PO SCH ×4 (09:11→23:07)
[2017-08-22] MEDS: ENOXAPARIN SODIUM INJ 40 MG/0.4 ML DISP.SYRIN SUBCUT SCH (09:11)
[2017-08-22] MEDS: MUPIROCIN 2% OINTMENT 22 GM TP SCH ×2 (09:32→17:13)
[2017-08-22] MEDS ORDERED: NORMAL SALINE 1000 ML 1,000 ML IV PRN (10:02)
[2017-08-22] MEDS ORDERED: MIDAZOLAM 2 MG/2 ML INJ ONE (11:08)
[2017-08-22] MEDS ORDERED: EPHEDRINE SULFATE INJ 50 MG/1 ML AMPULE ONE (11:08)
[2017-08-22] MEDS ORDERED: HYDROMORPHONE HCL INJ/PF 2 MG/ML AMPULE ONE (11:09)
[2017-08-22] MEDS ORDERED: ACETAMINOPHEN 100 ML IV ONE (11:09)
[2017-08-22] MEDS ORDERED: PROPOFOL INJ 200 MG/20 ML VIAL IV ONE (11:09)
[2017-08-22] MEDS ORDERED: BUPIVACAINE HCL 0.25 % INJ/PF (2.5 MG/1 ML) 30 ML VIAL ONE (11:10)
[2017-08-22] MEDS ORDERED: CEFAZOLIN INJ 1 GM VIAL ONE (11:34)
[2017-08-22] MEDS ORDERED: DIPHENHYDRAMINE HCL 50 MG/ML VIAL IV PRN (12:39)
[2017-08-22] MEDS ORDERED: MORPHINE SULFATE 10 MG/ML INJ IV PRN ×2 (12:39→13:25)
[2017-08-22] MEDS ORDERED: ONDANSETRON HCL INJ/PF 4 MG/2 ML SDV IV PRN (12:39)
[2017-08-22] MEDS ORDERED: FENTANYL CITRATE INJ/PF 100 MCG/2 ML AMPUL IV PRN ×3 (12:39)
[2017-08-22] MEDS ORDERED: OXYCODONE-ACETAMINOPHEN 5-325 MG TABLET PO PRN ×2 (12:39)
[2017-08-22] MEDS ORDERED: MEPERIDINE HCL/PF INJ 25 MG/1 ML DISP.SYRIN IV PRN (12:39)
[2017-08-22] MEDS ORDERED: PROMETHAZINE HCL INJ 25 MG/1 ML VIAL IV PRN ×2 (12:39)
--- NOTE | 2017-08-22 13:32 | Operative Report ---
Operative Report DATE OF SURGERY: 08/22/17 PREOPERATIVE DIAGNOSIS: Gallstone pancreatitis POSTOPERATIVE DIAGNOSIS: Gallstone pancreatitis OPERATION: Laparoscopic cholecystectomy with intraoperative cholangiogram SURGEON: HEBER PEREZ ANESTHESIA: GA TISSUE REMOVED OR ALTERED: gallbladder COMPLICATIONS: None ESTIMATED BLOOD LOSS: Minimal INTRAOPERATIVE FINDINGS: Normal-appearing common bile duct and common hepatic duct PROCEDURE: Informed consent was obtained. Patient was brought to the operating room placed operating table in supine position. After satisfactory induction of general anesthesia, patient's abdomen was prepped and draped in usual sterile fashion. A supraumbilical midline incision was made and dissection carried down to the fascia the peritoneal cavity entered without difficulty. Ronquillo trocar was inserted. Pneumoperitoneum produced good patient toleration. 5 mm trocar was placed in the subxiphoid location.Two 5 mm trochars were placed in the right subcostal location. The liver appears slightly fatty but otherwise appeared normal. There were lower abdominal omental adhesions. The gallbladder was grasped and retracted cephalad over the dome of the liver. The infundibulum of the gallbladder was grasped retracted laterally and inferiorly thus exposing calot's triangle. The cystic duct gallbladder junction was clearly identified and the cystic duct was clipped and partially divided allowing the placement of a cholangiocatheter. The cholangiocatheter balloon was insufflated. Intraoperative cholangiogram was performed which demonstrated filling of the common bile duct with no evidence of stone in the common bile duct with free flow contrast into the duodenum. However the balloon appeared to be inflated within the common bile duct therefore it was desufflated and contrast was injected which allowed filling of the common hepatic duct. I did not see evidence of common hepatic ducts stone. The cholangiocatheter was removed and the cystic duct was clipped and divided completely. Cystic artery was clipped and divided prior to the cholangiography. The gallbladder was taken off the gallbladder bed using the hook electrocautery technique. The gallbladder was removed with an Endobag through the Ronquillo trocar site fascial defect. Hemostasis appeared excellent. There was no bile spillage during the case other than couple of drops during the cholangiography. All trochars were removed under the direct vision a laparoscope to ensure hemostasis. The Ronquillo trocar site fascial defect was closed with interrupted Vicryl sutures. All skin incisions were closed with subcuticular interrupted Monocryl sutures. Marcaine was injected at the port sites. Patient tolerated procedure well no apparent complications and was taken to the recovery area in stable condition.
--- NOTE | 2017-08-22 14:22 | RADIOLOGY REPORT (SQ) ---
EXAM DESCRIPTION: CHOLANGIOGRAM OPERATIVE COMPLETED DATE/TIME: 08/22/2017 1:31 pm REASON FOR STUDY: CHOLANGIOGRAM ASST WITH FLUORO IN OR COMPARISON: Abdominal ultrasound 08/18/2017 FLUOROSCOPY TIME: 1.1 minutes 5 digital C-arm images saved to PACS. TECHNIQUE: Cinegraphic images were obtained from an intraoperative cholangiogram. LIMITATIONS: None. FINDINGS: Contrast was injected into the cystic duct remnant during laparoscopic cholecystectomy. There is opacification of the bile ducts, cystic duct remnant and second portion of the duodenum with out evidence of fixed filling defect or significant extravasation. IMPRESSION: INTRAOPERATIVE CHOLANGIOGRAM. COMMENT: Quality ID [id number]: Final reports for procedures using fluoroscopy that document radiation exp osure indices, or exposure time and number of fluorographic images (if radiation exposure indices are not available) TECHNICAL DOCUMENTATION: JOB ID: [id number] [employer]- All Rights Reserved
[2017-08-22] MEDS ORDERED: SUCCINYLCHOLINE CHLORIDE INJ 200 MG/10 ML VIAL ONE (14:32)
[2017-08-22] MEDS ORDERED: LIDOCAINE 2% INJ-PF (20 MG/ML) 2 ML AMPUL ONE (14:32)
[2017-08-22] MEDS ORDERED: DEXAMETHASONE SOD PHOSPHATE INJ 4 MG/1 ML VIAL ONE (14:32)
[2017-08-22] MEDS ORDERED: ROCURONIUM BROMIDE INJ 50 MG/5 ML VIAL IV ONE (14:32)
[2017-08-22] MEDS ORDERED: ONDANSETRON HCL INJ/PF 4 MG/2 ML SDV ONE (14:32)
[2017-08-22] MEDS ORDERED: METOCLOPRAMIDE HCL INJ/PF 10 MG/2 ML SDV ONE (14:32)
--- NOTE | 2017-08-22 17:42 | PDOC PROGRESS REPORT ---
Subjective Progress Note for:: 08/22/17 Subjective:: Patient had cholecystectomy earlier states nausea and weakness no fever or chills no abdominal pains Reason For Visit: ACUTE PANCREATITIS,METABOLIC ACIDOSIS,DIARRHEA Physical Exam Vital Signs: Temp Pulse Resp BP Pulse Ox 98.1 F 75 16 117/56 L 97 08/22/17 16:49 08/22/17 16:49 08/22/17 16:49 08/22/17 16:49 08/22/17 16:49 Intake & Output 08/21/17 08/22/17 08/23/17 00:59 00:59 00:59 Intake Total 249 067 6088 Output Total 230 Balance 829 218 9531 Weight 81.1 kg 81.4 kg General appearance: PRESENT: no acute distress, well-developed, well-nourished Head exam: PRESENT: atraumatic, normocephalic Eye exam: PRESENT: conjunctiva pink, EOMI, PERRLA. ABSENT: scleral icterus Ear exam: PRESENT: normal external ear exam Mouth exam: PRESENT: moist, tongue midline Neck exam: ABSENT: carotid bruit, JVD, lymphadenopathy, thyromegaly Respiratory exam: PRESENT: clear to auscultation matilde. ABSENT: rales, rhonchi, wheezes Cardiovascular exam: PRESENT: RRR. ABSENT: diastolic murmur, rubs, systolic murmur Pulses: PRESENT: normal dorsalis pedis pul Vascular exam: PRESENT: normal capillary refill GI/Abdominal exam: PRESENT: normal bowel sounds, soft. ABSENT: distended, guarding, mass, rebound, tenderness Results Laboratory Results: 08/22/17 05:52 08/22/17 05:52 08/22/17 08/22/17 05:52 05:52 WBC 5.5 RBC 4.01 Hgb 13.0 Hct 38.0 MCV 95 MCH 32.4 MCHC 34.1 RDW 13.5 Plt Count 274 Seg Neutrophils % 36.5 L Lymphocytes % 49.8 H Monocytes % 7.9 Eosinophils % 5.1 Basophils % 0.7 Absolute Neutrophils 2.0 Absolute Lymphocytes 2.8 Absolute Monocytes 0.4 Absolute Eosinophils 0.3 Absolute Basophils 0.0 Sodium 142.7 Potassium 3.9 Chloride 106 Carbon Dioxide 30 Anion Gap 7 BUN 4 L Creatinine 0.57 Est GFR ( Amer) > 60 Est GFR (Non-Af Amer) > 60 Glucose 88 Calcium 9.3 Impressions: Abdomen Ultrasound 08/18/17 00:00 IMPRESSION: 1. Cholelithiasis with no other sonographic evidence for acute cholecystitis. 2. Small hepatic cyst. KUB X-Ray 08/18/17 00:00 IMPRESSION: NO RADIOGRAPHIC EVIDENCE FOR ACUTE ABDOMINAL DISEASE. Cholangiogram 08/22/17 00:00 IMPRESSION: INTRAOPERATIVE CHOLANGIOGRAM. Assessment & Plan - Diagnosis (1) Gallstone pancreatitis Is this a current diagnosis for this admission?: Yes (2) Gastroenteritis Is this a current diagnosis for this admission?: Yes (3) Hx of breast cancer Is this a current diagnosis for this admission?: Yes (4) Status post cholecystectomy Is this a current diagnosis for this admission?: Yes - Time Time Spent with patient: robbie in am if stable
--- NOTE | 2017-08-23 08:50 | PDOC PROGRESS REPORT ---
Subjective Progress Note for:: 08/23/17 Subjective:: Surgery went well, sore this am, passing gas, tolerating clears this am, no bm yet Reason For Visit: ACUTE PANCREATITIS,METABOLIC ACIDOSIS,DIARRHEA Physical Exam Vital Signs: Temp Pulse Resp BP Pulse Ox 98.2 F 59 L 12 103/50 L 97 08/23/17 04:10 08/23/17 04:10 08/23/17 04:10 08/23/17 04:10 08/23/17 04:10 Intake & Output 08/22/17 08/23/17 08/24/17 06:59 06:59 06:59 Intake Total 400 2250 Output Total 230 Balance 400 2020 Weight 79.9 kg General appearance: PRESENT: no acute distress, well-developed, well-nourished Head exam: PRESENT: atraumatic, normocephalic Eye exam: PRESENT: conjunctiva pink, EOMI, PERRLA. ABSENT: scleral icterus Ear exam: PRESENT: normal external ear exam Mouth exam: PRESENT: moist, tongue midline Neck exam: ABSENT: carotid bruit, JVD, lymphadenopathy, thyromegaly Respiratory exam: PRESENT: clear to auscultation matilde. ABSENT: rales, rhonchi, wheezes Cardiovascular exam: PRESENT: RRR. ABSENT: diastolic murmur, rubs, systolic murmur Pulses: PRESENT: normal dorsalis pedis pul Vascular exam: PRESENT: normal capillary refill GI/Abdominal exam: PRESENT: normal bowel sounds, soft. ABSENT: distended, guarding, mass, organolmegaly, rebound, tenderness Rectal exam: PRESENT: deferred Extremities exam: PRESENT: full ROM. ABSENT: calf tenderness, clubbing, pedal edema Neurological exam: PRESENT: alert, awake, oriented to person, oriented to place , oriented to time, oriented to situation, CN II-XII grossly intact. ABSENT: motor sensory deficit Psychiatric exam: PRESENT: appropriate affect, normal mood. ABSENT: homicidal ideation, suicidal ideation Skin exam: PRESENT: dry, intact, warm. ABSENT: cyanosis, rash Results Laboratory Results: 08/22/17 05:52 08/22/17 05:52 Impressions: Abdomen Ultrasound 08/18/17 00:00 IMPRESSION: 1. Cholelithiasis with no other sonographic evidence for acute cholecystitis. 2. Small hepatic cyst. KUB X-Ray 08/18/17 00:00 IMPRESSION: NO RADIOGRAPHIC EVIDENCE FOR ACUTE ABDOMINAL DISEASE. Cholangiogram 08/22/17 00:00 IMPRESSION: INTRAOPERATIVE CHOLANGIOGRAM. Assessment & Plan - Diagnosis (1) Diarrhea Qualifiers: Diarrhea type: infectious Qualified Code(s): A09 - Infectious gastroenteritis and colitis, unspecified Is this a current diagnosis for this admission?: Yes Plan: multifactorial, now resolved (2) Breast cancer, left Qualifiers: Breast location: upper outer quadrant of breast Estrogen receptor status: negative Patient sex: female Qualified Code(s): C50.412 - Malignant neoplasm of upper-outer quadrant of left female breast; Z17.1 - Estrogen receptor negative status [ER-]; Z17.1 - Estrogen receptor negative status [ER-] Is this a current diagnosis for this admission?: Yes Plan: futher rx and f/u as outpt (3) Gallstone pancreatitis Is this a current diagnosis for this admission?: Yes Plan: s/p gayle, hopeful d/c soon when solids tolerated
[2017-08-23] MEDS: PSYLLIUM SEED-SF 5.85 GM PACKET PO SCH (10:01)
[2017-08-23] MEDS: DIPHENOXYLATE HCL/ATROP SULF 2.5-0.025 MG TABLET PO SCH (10:01)
[2017-08-23] MEDS: MUPIROCIN 2% OINTMENT 22 GM TP SCH (10:30)
[2017-08-23] MEDS: LACTOBACILLUS ACIDOPHILUS 250 MG TAB PO SCH (10:30)
[2017-08-23] MEDS: ENOXAPARIN SODIUM INJ 40 MG/0.4 ML DISP.SYRIN SUBCUT SCH (10:31)
--- NOTE | 2017-08-23 11:45 | PDOC DISCHARGE SUMMARY ---
General - Admit/Disc Date/PCP Admission Date/Primary Care Provider: 08/19/17 17:37 Discharge Date: 08/23/17 - Discharge Diagnosis (1) Gallstone pancreatitis Is this a current diagnosis for this admission?: Yes (2) Gastroenteritis Is this a current diagnosis for this admission?: Yes (3) Hx of breast cancer Is this a current diagnosis for this admission?: Yes (4) Status post cholecystectomy Is this a current diagnosis for this admission?: Yes - Additional Information Resuscitation Status: Full Code Discharge Diet: As Tolerated Discharge Activity: Activity As Tolerated Home Medications: Ondansetron [Zofran Odt 4 mg Tablet] 2 tab PO Q6HP PRN 08/19/17 History of Present Illness Patient complains of: nausea vomiting abdominal pain History of Present Illness: PRETTY OSORIO is a 56 year old female with a history of breast cancer status post left mastectomy on 07/30/2017 currently on chemotherapy, diverticulitis, arthritis presenting with worsening diarrhea since 10 PM last night. Patient tends to have some diarrhea especially following chemotherapy. Patient had chemotherapy about 2 weeks ago for her breast cancer. About 10 PM patient diarrhea worsened. She is going every 10-15 minutes. Patient is exhausted because of this. Patient has been having crampy lower abdominal pain. Patient states that this is irritating her hemorrhoids and now she is having some bright red blood in her stools. Patient states that her stool is watery. Patient denied any fevers but does have chills she states that after getting some Imodium here the stools have formed up. Per patient he did have nausea and vomiting for about 24 hours which resolved on its own. The ED patient was noted to have elevated lipase. She was mildly tachycardic but blood pressure stable. Patient C. difficile was negative. Patient was given Imodium, morphine for pain and anti-emetics. Hospitalist was called to bring patient in for observation for hydration and symptomatic management. Hospital Course Hospital Course: - Diagnosis (1) Gallstone pancreatitis Status post cholecystectomy Patient had an atypical presentation of acute gastroenteritis on admission further tests were suggestive of gallstone pancreatitis she underwent surgery without complications (2) Hx of breast cancer stage 3 left breast cancer on Herceptin patient to resume treatment at discharge as scheduled Physical Exam Vital Signs: Temp Pulse Resp BP Pulse Ox 98.0 F 60 16 108/53 L 97 08/23/17 07:59 08/23/17 07:59 08/23/17 07:59 08/23/17 07:59 08/23/17 07:59 Intake & Output 08/22/17 08/23/17 08/24/17 00:59 00:59 00:59 Intake Total 400 1770 480 Output Total 230 Balance 400 1540 480 Weight 81.4 kg 79.9 kg General appearance: PRESENT: no acute distress, well-developed, well-nourished Head exam: PRESENT: atraumatic, normocephalic Eye exam: PRESENT: conjunctiva pink, EOMI, PERRLA. ABSENT: scleral icterus Ear exam: PRESENT: normal external ear exam Mouth exam: PRESENT: moist, tongue midline Neck exam: ABSENT: carotid bruit, JVD, lymphadenopathy, thyromegaly Respiratory exam: PRESENT: clear to auscultation matilde. ABSENT: rales, rhonchi, wheezes Cardiovascular exam: PRESENT: RRR. ABSENT: diastolic murmur, rubs, systolic murmur Pulses: PRESENT: normal dorsalis pedis pul Vascular exam: PRESENT: normal capillary refill GI/Abdominal exam: PRESENT: normal bowel sounds, soft. ABSENT: distended, guarding, mass, rebound, tenderness Results Laboratory Results: 08/22/17 05:52 08/22/17 05:52 Impressions: Abdomen Ultrasound 08/18/17 00:00 IMPRESSION: 1. Cholelithiasis with no other sonographic evidence for acute cholecystitis. 2. Small hepatic cyst. KUB X-Ray 08/18/17 00:00 IMPRESSION: NO RADIOGRAPHIC EVIDENCE FOR ACUTE ABDOMINAL DISEASE. Cholangiogram 08/22/17 00:00 IMPRESSION: INTRAOPERATIVE CHOLANGIOGRAM.
[2017-08-23 12:07] VITALS: BP 127/84
== END 2017-08-23 12:35 | disposition home or self-care (01) | DRG 418 ==
LOC: ER 04:34 → EH 08:19 → 2N 10:16 → OBSVTOIN 08-19 17:37
PROVIDERS: ADMIT Emergency Medicine; ATTEND Emergency Medicine
PROC: BF101ZZ Fluoroscopy of Bile Ducts using Low Osmolar Contrast (ICD-10-PCS; 2017-08-22)
PROC: 0FT44ZZ Resection of Gallbladder, Percutaneous Endoscopic Approach (ICD-10-PCS; principal; 2017-08-22 11:45)
DX: K85.10 Biliary acute pancreatitis without necrosis or infection (principal); E87.2 Acidosis; E44.0 Moderate protein-calorie malnutrition; K52.9 Noninfective gastroenteritis and colitis, unspecified; Z90.12 Acquired absence of left breast and nipple; M47.9 Spondylosis, unspecified; M19.042 Primary osteoarthritis, left hand; M19.041 Primary osteoarthritis, right hand; C50.412 Malignant neoplasm of upper-outer quadrant of left female breast; M19.91 Primary osteoarthritis, unspecified site; F17.210 Nicotine dependence, cigarettes, uncomplicated; K64.8 Other hemorrhoids; E87.6 Hypokalemia; Z17.1 Estrogen receptor negative status [ER-]; Z88.6 Allergy status to analgesic agent; Z88.2 Allergy status to sulfonamides; Z83.3 Family history of diabetes mellitus; Z80.9 Family history of malignant neoplasm, unspecified
CPT/HCPCS: 36415; 74018; 74300; 76705; 790; 80048; 80053; 80076; 81001; 82150; 83690; 83735; 85025; 87040; 87045; 87205; 87493; 88304; 96361; 96374; 96375; 99285; G0378; J0131; J0330; J0690; J1100; J1170; J1642; J1650; J1885; J2250; J2270; J2405; J2704; J2765; J3480; J3490; J7030; Q9967; S0164

== ENCOUNTER → 2017-09-12 | Outpatient (CLI) | payer BC ==
--- NOTE | 2017-09-12 12:50 | RADIOLOGY REPORT (SQ) ---
EXAM DESCRIPTION: CHEST PA/LAT COMPLETED DATE/TIME: 09/12/2017 9:59 am REASON FOR STUDY: SHORTNESS OF BREATH COMPARISON: 07/24/2017 NUMBER OF VIEWS: Two view. TECHNIQUE: Frontal and lateral radiographic views of the chest acquired. LIMITATIONS: None. FINDINGS: LUNGS AND PLEURA: Lungs remain clear with no new infiltrates, masses or effusions. MEDIASTINUM AND HILAR STRUCTURES: No masses or contour abnormalities. HEART AND VASCULATURE: Heart normal size. No evidence for failure. BONY STRUCTURES: No acute findings. HARDWARE: Central line on the right with tip projected over the superior vena cava. OTHER: No other significant finding. IMPRESSION: No active cardiopulmonary disease. No interval change since the previous chest x-ray TECHNICAL DOCUMENTATION: JOB ID: [id number] [employer]- All Rights Reserved
== END ==
LOC: RAD 09:47
PROVIDERS: ATTEND Internal Medicine
DX: R06.02 Shortness of breath (principal); R10.9 Unspecified abdominal pain
CPT/HCPCS: 71046

== ENCOUNTER → 2017-09-17 | Outpatient (CLI) | payer BC ==
[~2017-09-17] MED LIST changes: -CEFAZOLIN 1 GM/D5W RTU 1 GM/50 ML RTUPB IV PRN; -DEXAMETHASONE SOD PHOSPHATE INJ 4 MG/1 ML VIAL ONE; -GLYCOPYRROLATE INJ 0.4 MG/2 ML VIAL ONE; -LACTATED RINGERS 1000 ML IV PRN; -LIDOCAINE 0.5% INJ-PF (5 MG/ML) 50 ML SDV SUBCUT PRN; +LIDOCAINE 2% INJ (20 MG/ML) 20 ML MDV ONE; -LIDOCAINE 2% INJ-PF (20 MG/ML) 2 ML AMPUL ONE; -LIDOCAINE 4% TRANSPARENT DRESSING 5 GM KIT TP PRN; -NORMAL SALINE 1000 ML 1,000 ML IV PRN; -ONDANSETRON HCL INJ/PF 4 MG/2 ML SDV ONE; -SCOPOLAMINE HYDROBROMIDE 1.5 MG PATCH.TD72 TD PRN; -SUCCINYLCHOLINE CHLORIDE INJ 200 MG/10 ML VIAL ONE
--- NOTE | 2017-09-17 17:00 | WOMENS IMAGING REPORT ---
EXAM DESCRIPTION: U/S BREAST UNILAT LIMITED COMPLETED DATE/TIME: 09/17/2017 2:34 pm REASON FOR STUDY: UNSPECIFED LUMP; N63.32 N63.32 UNSPECIFIED LUMP IN AXILLARY TAIL OF THE LEFT [address]ISAB[address] ST COMPARISON: None. TECHNIQUE: Real-time and static grayscale imaging performed of the left breast targeted to the area of clinical concern. Selected color Doppler images recorded. LIMITATIONS: None. FINDINGS: Patient indicates a palpable abnormality in the left anterior chest wall about 4 cm superi or to the mastectomy scar. Ultrasound of this area demonstrates no focal soft tissue findings. Dinorah ent is palpating an anterior left rib. Patient indicates a soft masslike area along the lateral edge of the left mastectomy incision. In th e supine position, there is a small fluid collection without debris which measures about 2.5 x 0.5 cm in size. This is compressible and can be effaced with minimal pressure. The patient was rolled int o the right decubitus position, this fluid collection dissipated. This likely represents a small cindy unt of fluid tracking between the superficial aspect of the pectoralis muscle and the subcutaneous fa t. No aspiration of this fluid collection was performed today. IMPRESSION: Small seroma along the superficial aspect of the left pectoralis muscle deep to the mast ectomy incision. This fluid collection can be effaced with minimal pressure by the transducer. The fluid shifts medially and laterally within the tissue planes between the pectoralis muscle and subcut aneous fat. No aspiration of the fluid was performed today BIRAD: 2 Benign findings. RECOMMENDATION: RECOMMENDED FOLLOW-UP: Clinical follow-up recommended COMMENT: The [employer] (ACR) has developed recommendations for screening MRI of the breasts in certain patient populations, to be used in conjunction with mammography. Breast MRI s urveillance may be appropriate for women with more than 20% lifetime risk of developing breast cancer as determined by genetic testing, significant family history of the disease, or history of mantle r adiation for Hodgkins Disease. ACR Practice Guidelines 2007. TECHNICAL DOCUMENTATION: JOB ID: [id number] [employer]- All Rights Reserved Reading location - IP/workstation name: [email or web address]
== END ==
LOC: WI 12:51
PROVIDERS: ATTEND Physician Assistant Surgical
DX: N63.32 Unspecified lump in axillary tail of the left breast (principal)
CPT/HCPCS: 76642; J3490

== ENCOUNTER → 2017-10-01 | Outpatient (CLI) | payer BC ==
--- NOTE | 2017-10-01 16:12 | RADIOLOGY REPORT (SQ) ---
EXAM DESCRIPTION: NM MUGA REST COMPLETED DATE/TIME: 10/01/2017 12:05 pm REASON FOR STUDY: C50.212 MALIG NEOPLASM OF UPPER-INNER QUADRANT OF LEFT FEMALE BREAST C50.212 NATE G NEOPLASM OF UPPER-INNER QUADRANT OF LEFT FEMAL COMPARISON: None. RADIONUCLIDE AND DOSE: 23.8 mCi technetium 99 M labeled red blood cells. The route of agent administration: Intravenous TECHNIQUE: Following administration of the radionuclide, gated images of the heart are obtained in t hree projections. Left ventricular functional analysis performed. LIMITATIONS: None. FINDINGS: LEFT VENTRICULAR FUNCTION: EJECTION FRACTION: 60%. END-DIASTOLIC VOLUME: 183 mL. END-SYSTOLIC VOLUME: 62 mL. WALL MOTION: No focal wall motion abnormalities. OTHER: No other significant finding. IMPRESSION: NORMAL CARDIAC MUGA STUDY. NORMAL LEFT VENTRICULAR FUNCTION WITH VALUES ABOVE. TECHNICAL DOCUMENTATION: JOB ID: [id number] [employer] All Rights Reserved Reading location - IP/workstation name: [email or web address]
== END ==
LOC: RAD 10:57
PROVIDERS: ATTEND Internal Medicine
DX: Z08 Encounter for follow-up examination after completed treatment for malignant neoplasm (principal); C50.212 Malignant neoplasm of upper-inner quadrant of left female breast
CPT/HCPCS: 78472; A9560; Q9969

== ENCOUNTER → 2017-12-30 | Outpatient (CLI) | payer BC ==
--- NOTE | 2017-12-30 13:27 | RADIOLOGY REPORT (SQ) ---
EXAM DESCRIPTION: NM MUGA REST COMPLETED DATE/TIME: 12/30/2017 12:39 pm REASON FOR STUDY: MALIG NEOPLASM OF UPPER-INNER QUADRANT OF LEFT FEMALE BREAST C50.212 MALIG NEOPLA SM OF UPPER-INNER QUADRANT OF LEFT FEMAL Z08 ENCNTR FOR FOLLOW-UP EXAM AFTER TRTMT FOR MALIGNANT ETELVINA P COMPARISON: 01/28/2017, 07/04/2017, 10/01/2017 RADIONUCLIDE AND DOSE: 25.9 mCi technetium 99m labeled red blood cells The route of agent administration: Intravenous TECHNIQUE: Following administration of the radionuclide, gated images of the heart are obtained in t hree projections. Left ventricular functional analysis performed. LIMITATIONS: None. FINDINGS: LEFT VENTRICULAR FUNCTION: EJECTION FRACTION: Calculated today at 53%. END-DIASTOLIC VOLUME: 176 mL. END-SYSTOLIC VOLUME: 76 mL. WALL MOTION: Mild diffuse depressed wall motion OTHER: No other significant finding. IMPRESSION: Left ventricular ejection fraction today calculated at 53% (was 60% on 10/01/2017, 63% on 07/04/2017, and 60% on 01/28/2017) TECHNICAL DOCUMENTATION: JOB ID: [id number] [employer]- All Rights Reserved Reading location - IP/workstation name: [email or web address]
== END ==
LOC: RAD 11:02
PROVIDERS: ATTEND Internal Medicine
DX: C50.212 Malignant neoplasm of upper-inner quadrant of left female breast (principal); Z08 Encounter for follow-up examination after completed treatment for malignant neoplasm
CPT/HCPCS: 78472; A9560; Q9969

== ENCOUNTER → 2018-02-24 | Outpatient (CLI) | payer BC ==
--- NOTE | 2018-02-24 12:40 | RADIOLOGY REPORT (SQ) ---
EXAM DESCRIPTION: NM MUGA REST COMPLETED DATE/TIME: 02/24/2018 12:28 pm REASON FOR STUDY: BREAST CA C50.212 MALIG NEOPLASM OF UPPER-INNER QUADRANT OF LEFT FEMAL COMPARISON: 12/30/2017, 10/01/2017 RADIONUCLIDE AND DOSE: 25.5 mCi technetium 99m labeled red blood cells The route of agent administration: Intravenous TECHNIQUE: Following administration of the radionuclide, gated images of the heart are obtained in t hree projections. Left ventricular functional analysis performed. LIMITATIONS: None. FINDINGS: LEFT VENTRICULAR FUNCTION: EJECTION FRACTION: 52%. END-DIASTOLIC VOLUME: 131 mL. END-SYSTOLIC VOLUME: 53 mL. WALL MOTION: No focal wall motion abnormalities. OTHER: Mildly dilated left ventricle IMPRESSION: Left ventricular ejection fraction calculated at 52% TECHNICAL DOCUMENTATION: JOB ID: [id number] [employer]- All Rights Reserved Reading location - IP/workstation name: [email or web address]
== END ==
LOC: RAD 10:48
PROVIDERS: ATTEND Internal Medicine
DX: Z08 Encounter for follow-up examination after completed treatment for malignant neoplasm (principal); C50.212 Malignant neoplasm of upper-inner quadrant of left female breast
CPT/HCPCS: 78472; A9560; Q9969

== ENCOUNTER → 2018-03-05 | Outpatient (CLI) | payer BC ==
--- NOTE | 2018-03-05 11:17 | WOMENS IMAGING REPORT ---
EXAM DESCRIPTION: BONE DENSITY HIP/SPINE COMPLETED DATE/TIME: 03/05/2018 11:02 am REASON FOR STUDY: OSTEOPENIA M81.0 AGE-RELATED OSTEOPOROSIS W/O CURRENT PATHOLOGICAL FRAC COMPARISON: None. TECHNIQUE: Dual-Energy X-ray Absorptiometry (DEXA) of the AP Spine and Hip. LIMITATIONS: None. FINDINGS: LUMBAR SPINE: The bone mineral density (BMD) measured from L1-L4 in the AP projection correlates with a T-score of +0.0, which is normal as defined by the World Health Organization. HIP: The bone mineral density (BMD) measured in the left femoral neck at the hip correlates with a T-score of -1.4, which is osteopenic as defined by the World Health Organization. IMPRESSION: 1. LUMBAR SPINE: Normal 2. HIP: Osteopenic COMMENT: The World Health Organization defines low BMD as follows: T-score: Normal: Greater than -1.0 Osteopenia: Between -1.0 and -2.5 Osteoporosis: Less than -2.5 without fractures Established osteoporosis: Less than -2.5 with fractures In general, you may wish to consider: Diagnosis Treatment Follow-up DEXA Normal BMD Prevention 2-3 years Osteopenia Prevention/Therapy 1-2 years Osteoporosis Therapy Yearly TECHNICAL DOCUMENTATION: JOB ID: [id number] [employer]- All Rights Reserved Reading location - IP/workstation name: [email or web address]
== END ==
LOC: WI 10:29
PROVIDERS: ATTEND Physician Assistant Medical
DX: M81.0 Age-related osteoporosis without current pathological fracture (principal)
CPT/HCPCS: 77080

== ENCOUNTER 2018-07-07 11:23 | Emergency (ER) | payer BC ==
--- NOTE | 2018-07-07 11:53 | ER Document Report ---
ED Medical Screen (RME) - General Chief Complaint: Chest Pain Stated Complaint: CHEST PAIN Time Seen by Provider: 07/07/18 11:44 Mode of Arrival: Ambulatory Information source: Patient, [facility] Records Notes: 57-year-old female with history of breast cancer currently in remission last chemo performed in January presents with complaint of sudden onset of chest pain that occurred 2 hours prior to arrival while the patient was at rest. Patient states that she had chest pressure and associated shortness of breath, nausea, diaphoresis. Patient reports that she was recently treated with azithromycin and Augmentin for crackles in her lung bases that were heard by her oncologist. Patient reports a recent echocardiogram that was performed due to heart damage and chemotherapy. She states that she did receive a call from where she underwent the echocardiogram and was told that she needs a EKG because of an abnormality that was seen. Patient took aspirin prior to arrival. I have greeted and performed a rapid initial assessment of this patient. A comprehensive ED assessment and evaluation of the patient, analysis of test results and completion of medical decision making process we will be contacted by additional ED providers. PHYSICAL EXAMINATION: Vital signs reviewed-afebrile GENERAL: Holding chest LUNGS: No respiratory distress Musculoskeletal: Normal range of motion NEUROLOGICAL: Normal speech, PSYCH: Normal mood, normal affect. SKIN: Warm, Dry, normal turgor, no rashes or lesions noted. TRAVEL OUTSIDE OF THE [place] IN LAST 30 DAYS: No - HPI Onset: Just prior to arrival Onset/Duration: Sudden Quality of pain: Pressure Severity: Moderate Associated Symptoms: Chest pain, Nausea, Shortness of breath, Sweating Exacerbated by: Denies Relieved by: Denies Similar symptoms previously: No Recently seen / treated by doctor: Yes - Related Data Smoking: Non-smoker Frequency of alcohol use: None Drug Abuse: None Allergies/Adverse Reactions: adhesive Allergy (Verified 07/07/18 11:23) RASH, SWELLING adhesive tape Allergy (Verified 07/07/18 11:23) RASH codeine Allergy (Verified 07/07/18 11:23) VOMITING, NEUROLICICAL ISSUES Sulfa (Sulfonamide Antibiotics) Allergy (Verified 07/07/18 11:23) Hives Past Medical History - Past Medical History Cardiac Medical History: Denies: Hx Coronary Artery Disease, Hx Heart Attack, Hx Hypertension Pulmonary Medical History: Reports: Hx Pneumonia Denies: Hx Asthma, Hx Bronchitis, Hx COPD Neurological Medical History: Denies: Hx Cerebrovascular Accident, Hx Seizures Renal/ Medical History: Denies: Hx Peritoneal Dialysis Malignancy Medical History: Reports: Hx Breast Cancer Musculoskeltal Medical History: Reports Hx Arthritis - BACK, NECK, BILAT HANDS Psychiatric Medical History: Denies: Hx Depression Past Surgical History: Reports: Hx Mastectomy - Left - Immunizations Hx Diphtheria, Pertussis, Tetanus Vaccination: Yes History of Influenza Vaccine for 04/2017 - 09/2017 Season: Refused Physical Exam - Vital signs Vitals: Temp Pulse Resp BP Pulse Ox 97.5 F 71 18 111/55 L 97 07/07/18 11:35 07/07/18 11:35 07/07/18 11:35 07/07/18 11:35 07/07/18 11:35 Course - Vital Signs Vital signs: Temp Pulse Resp BP Pulse Ox 97.5 F 71 18 111/55 L 97 07/07/18 11:35 07/07/18 11:35 07/07/18 11:35 07/07/18 11:35 07/07/18 11:35 Doctor's Discharge - Discharge Referrals: GABRIELLA MA PAAndreinaC [Primary Care Provider] - Follow up as needed
[2018-07-07 12:32] LABS: ABSOLUTE EOSINOPHILS # (AUTO) 0.6 10^3/uL (0.0-0.6); ABSOLUTE LYMPHOCYTES (AUTO) 1.4 10^3/uL (0.5-4.7); ABSOLUTE MONOCYTES (AUTO) 0.7 10^3/uL (0.1-1.4); BASOPHILS % (AUTO) 0.2 % (0-2); EOSINOPHILS % (AUTO) 5.9 % (0-6); HEMATOCRIT 45.5 % (36.0-47.0); HEMOGLOBIN 15.9 g/dL (12.0-15.5); LYMPHOCYTES % (AUTO) 12.6 % (13-45); MEAN CORPUSCULAR HEMOGLOBIN 33.2 pg (27.0-33.4); MEAN CORPUSCULAR HGB CONC 34.8 g/dL (32.0-36.0); MEAN CORPUSCULAR VOLUME 95 fl (80-97); MONOCYTES % (AUTO) 6.2 % (3-13); PLATELET COUNT 308 10^3/uL (150-450); RED BLOOD COUNT 4.78 10^6/uL (3.72-5.28); RED CELL DISTRIBUTION WIDTH 12.7 % (11.5-14.0); SEGMENTED NEUTROPHILS % (AUTO) 75.1 % (42-78); TOTAL CELLS COUNTED % (AUTO) 100 %; WHITE BLOOD COUNT 10.7 10^3/uL (4.0-10.5)
--- NOTE | 2018-07-07 12:47 | RADIOLOGY REPORT (SQ) ---
EXAM DESCRIPTION: CHEST 2 VIEWS COMPLETED DATE/TIME: 07/07/2018 12:35 pm REASON FOR STUDY: Chest pain, shortness of breath COMPARISON: 09/12/2017 EXAM PARAMETERS: NUMBER OF VIEWS: two views TECHNIQUE: Digital Frontal and Lateral radiographic views of the chest acquired. RADIATION DOSE: NA LIMITATIONS: none FINDINGS: LUNGS AND PLEURA: No opacities, masses or pneumothorax. No pleural effusion. MEDIASTINUM AND HILAR STRUCTURES: No masses or contour abnormalities. HEART AND VASCULAR STRUCTURES: Heart normal size. No evidence for failure. BONES: No acute findings. HARDWARE: Venous access catheter unchanged. OTHER: No other significant finding. IMPRESSION: NO ACUTE RADIOGRAPHIC FINDING IN THE CHEST. TECHNICAL DOCUMENTATION: JOB ID: [id number] [employer]- All Rights Reserved Reading location - IP/workstation name: [email or web address]
[2018-07-07 12:49] LABS: ALANINE AMINOTRANSFERASE 32 U/L (9-52); ALBUMIN 4.6 g/dL (3.5-5.0); ALKALINE PHOSPHATASE 102 U/L (38-126); ANION GAP 9 (5-19); ASPARTATE AMINO TRANSFERASE 48 U/L (14-36); BILIRUBIN,DIRECT 0.2 mg/dL (0.0-0.4); BILIRUBIN,TOTAL 0.4 mg/dL (0.2-1.3); BLOOD UREA NITROGEN 8 mg/dL (7-20); CALCIUM 9.4 mg/dL (8.4-10.2); CARBON DIOXIDE 24 mmol/L (22-30); CHLORIDE 107 mmol/L (98-107); CREATINE KINASE 55 U/L (30-135); GLUCOSE 97 mg/dL (75-110); POTASSIUM 4.1 mmol/L (3.6-5.0); SODIUM 139.5 mmol/L (137-145); TOTAL PROTEIN 7.3 g/dL (6.3-8.2)
[2018-07-07 12:58] LABS: CREATINE KINASE MB 1.17 ng/mL (<4.55)
--- NOTE | 2018-07-07 13:01 | ER Document Report ---
ED General - General Chief Complaint: Chest Pain Stated Complaint: CHEST PAIN Time Seen by Provider: 07/07/18 11:44 Mode of Arrival: Ambulatory Information source: Patient Notes: 57-year-old female with a history of breast cancer currently in remission presents emergency department complaints of sudden onset chest pain that started 2 hours prior to arrival. Patient states that she was at rest when it occurred. She states it lasted about 5 minutes. She describes the pain as a pressure sensation. She had associated shortness of breath, nausea, diaphoresis. Patient states that she has seen her oncologist recently and was started on azithromycin and Augmentin as she had crackles in her lung bases. Patient states that today is her last dose of the Augmentin. Patient denies a history of coronary artery disease, hypertension, hyperlipidemia, diabetes. Patient states that she does smoke. Patient denies any recent travel, recent surgery, calf pain, calf swelling, history of DVT or PE. Patient took aspirin prior to arrival. TRAVEL OUTSIDE OF THE [place] IN LAST 30 DAYS: No - HPI Onset: Other - 2 hours prior to arrival Onset/Duration: Sudden Quality of pain: No pain Severity: None Pain Level: Denies Associated symptoms: Nausea Exacerbated by: Denies Relieved by: Denies Similar symptoms previously: No Recently seen / treated by doctor: No - Related Data Allergies/Adverse Reactions: adhesive Allergy (Verified 07/07/18 11:23) RASH, SWELLING adhesive tape Allergy (Verified 07/07/18 11:23) RASH codeine Allergy (Verified 07/07/18 11:23) VOMITING, NEUROLICICAL ISSUES Sulfa (Sulfonamide Antibiotics) Allergy (Verified 07/07/18 11:23) Hives Past Medical History - General Information source: Patient, [facility] Records - Social History Smoking Status: Current Every Day Smoker Chew tobacco use (# tins/day): No Frequency of alcohol use: None Drug Abuse: None Family History: DM, Malignancy Patient has suicidal ideation: No Patient has homicidal ideation: No - Past Medical History Cardiac Medical History: Denies: Hx Coronary Artery Disease, Hx Heart Attack, Hx Hypertension Pulmonary Medical History: Reports: Hx Pneumonia Denies: Hx Asthma, Hx Bronchitis, Hx COPD Neurological Medical History: Denies: Hx Cerebrovascular Accident, Hx Seizures Renal/ Medical History: Denies: Hx Peritoneal Dialysis Malignancy Medical History: Reports: Hx Breast Cancer Musculoskeletal Medical History: Reports Hx Arthritis - BACK, NECK, BILAT HANDS Psychiatric Medical History: Denies: Hx Depression Past Surgical History: Reports: Hx Mastectomy - Left - Immunizations Hx Diphtheria, Pertussis, Tetanus Vaccination: Yes Review of Systems - Review of Systems Constitutional: No symptoms reported EENT: No symptoms reported Cardiovascular: Chest pain, Dizziness Respiratory: Short of breath Gastrointestinal: No symptoms reported Genitourinary: No symptoms reported Female Genitourinary: No symptoms reported Musculoskeletal: No symptoms reported Skin: No symptoms reported Hematologic/Lymphatic: No symptoms reported Neurological/Psychological: No symptoms reported -: Yes All other systems reviewed and negative Physical Exam - Vital signs Vitals: Temp Pulse Resp BP Pulse Ox 97.5 F 71 18 111/55 L 97 07/07/18 11:35 07/07/18 11:35 07/07/18 11:35 07/07/18 11:35 07/07/18 11:35 - Notes Notes: PHYSICAL EXAMINATION: GENERAL: Well-appearing, well-nourished and in no acute distress. HEAD: Atraumatic, normocephalic. EYES: Pupils equal round and reactive to light, extraocular movements intact, conjunctiva are normal. ENT: Nares patent, oropharynx clear without exudates. Moist mucous membranes. NECK: Normal range of motion, supple without lymphadenopathy LUNGS: Breath sounds clear to auscultation bilaterally and equal. No wheezes rales or rhonchi. HEART: Regular rate and rhythm without murmurs ABDOMEN: Soft, nontender, nondistended abdomen. No guarding, no rebound. No masses appreciated. Female : deferred Musculoskeletal: Normal range of motion, no pitting or edema. No cyanosis. NEUROLOGICAL: Cranial nerves grossly intact. Normal speech, normal gait. Normal sensory, motor exams PSYCH: Normal mood, normal affect. SKIN: Warm, Dry, normal turgor, no rashes or lesions noted. Course - Re-evaluation Re-evalutation: 07/07/18 13:00 EKG: Ventricular rate 68, GA interval 163, QRS duration 96, QTc 503, sinus rhythm, no ST segment elevation. 07/07/18 17:22 Repeat EKG: Ventricular rate 70, GA interval 156, castration 92, QTc 506, sinus rhythm, no ST segment elevation or depression. 07/07/18 17:27 Heart score of 2. Labs and imaging obtained. Cardiac enzymes negative x2. EKG does not show ST segment elevation. D-dimer came back elevated and a CTA of the chest was done. No pulmonary embolism. Patient has had no episodes of chest pain while in the emergency department. I discussed discharge home versus admission with the patient. Patient feels comfortable with discharge home and following up outpatient. I instructed the patient to return to the emergency department if she begins having any continued chest pain or difficulty breathing. Patient feels comfortable with the plan of care. - Vital Signs Vital signs: Temp Pulse Resp BP Pulse Ox 97.5 F 71 15 109/60 98 07/07/18 11:35 07/07/18 11:35 07/07/18 16:00 07/07/18 14:00 07/07/18 16:00 - Laboratory Result Diagrams: 07/07/18 12:15 07/07/18 12:15 Laboratory results interpreted by me: 07/07/18 07/07/18 07/07/18 12:15 12:15 12:15 WBC 10.7 H Hgb 15.9 H Lymphocytes % 12.6 L D-Dimer 1.43 H Creatinine 0.47 L AST 48 H Discharge - Discharge Clinical Impression: Chest pain Qualifiers: Chest pain type: unspecified Qualified Code(s): R07.9 - Chest pain, unspecified Condition: Good Disposition: HOME, SELF-CARE Instructions: Chest Pain of Unclear Cause ([facility]) Referrals: GABRIELLA MA PA-C [ALLIED HEALTH PROFESSIONAL] - Follow up as needed
[2018-07-07 13:10] LABS: TROPONIN I < 0.012 ng/mL
--- NOTE | 2018-07-07 13:27 | EKG REPORT ---
SEVERITY:- BORDERLINE ECG - SINUS RHYTHM BORDERLINE PROLONGED QT INTERVAL : Confirmed by: Gee Montanez MD 07-Jul-2018 13:26:05
--- NOTE | 2018-07-07 15:36 | RADIOLOGY REPORT (SQ) ---
EXAM DESCRIPTION: CTA CHEST COMPLETED DATE/TIME: 07/07/2018 3:22 pm REASON FOR STUDY: chest pain, shortness of breath COMPARISON: 01/24/2017. TECHNIQUE: CT scan of the chest performed using helical scanning technique with dynamic intravenous contrast injection. Images reviewed with lung, soft tissue and bone windows. Reconstructed coronal and sagittal MPR images reviewed. Additional 3 dimensional post-processing performed to develop Maximal Intensity Projection images (WA P). All images stored on PACS. All CT scanners at this facility use dose modulation, iterative reconstruction, and/or weight based d osing when appropriate to reduce radiation dose to as low as reasonably achievable (ALARA). [facility]: Dose Right [facility]: CareDose [facility]: Dose Right [facility]: Teradose 4D [facility]: [employer] CONTRAST TYPE AND DOSE: contrast/concentration: Isovue mg/ml; Total Contrast Delivered: 68.0 ml; To yong Saline Delivered: 90.0 ml 68 mL Omnipaque 350- low osmolar. Contrast bolus adequate for pulmonary arteries and aorta. RENAL FUNCTION: BUN 8 creatinine 0.47. RADIATION DOSE: CT Rad equipment meets quality standard of care and radiation dose reduction techniq ues were employed. CTDIvol: 12.8 - 14.1 mGy. DLP: 513 mGy-cm. . LIMITATIONS: None. FINDINGS: LUNGS AND PLEURA: No masses, infiltrates, or pneumothorax. No pleural effusions or pleura l calcifications. AORTA AND GREAT VESSELS: No aneurysm. Contrast bolus not optimized for the aorta. HEART: No pericardial effusion. No significant coronary artery calcifications. PULMONARY ARTERIES: No emboli visualized in the main pulmonary arteries or the segmental branches. HILAR AND MEDIASTINAL STRUCTURES: No identified masses or abnormal nodes. HARDWARE: Vascular port. UPPER ABDOMEN: No significant findings. Hepatic cysts. Limited exam. THYROID AND OTHER SOFT TISSUES: No masses. No adenopathy. Left mastectomy. BONES: No acute or significant finding. 3D MIPS: Confirm above findings. OTHER: No other significant finding. IMPRESSION: NORMAL CTA OF THE CHEST. NO PULMONARY EMBOLI. COMMENT: Quality ID # [id number]: Final reports with documentation of one or more dose reduction techniques (e.g., Automated exposure control, adjustment of the mA and/or kV according to patient size, use of iterative reconstruction technique) TECHNICAL DOCUMENTATION: JOB ID: [id number]- All Rights Reserved Reading location - IP/workstation name: [email or web address]
[2018-07-07 17:42] VITALS: BP 111/79
--- NOTE | 2018-07-07 18:56 | EKG REPORT ---
SEVERITY:- BORDERLINE ECG - SINUS RHYTHM BORDERLINE PROLONGED QT INTERVAL : Confirmed by: Gee Montanez MD 07-Jul-2018 18:56:00
== END 2018-07-07 17:43 | disposition home or self-care (01) ==
LOC: ER 11:23
DX: R07.9 Chest pain, unspecified (principal); R06.02 Shortness of breath; R11.0 Nausea; R61 Generalized hyperhidrosis; F17.200 Nicotine dependence, unspecified, uncomplicated; R09.89 Other specified symptoms and signs involving the circulatory and respiratory systems; R42 Dizziness and giddiness; Z85.3 Personal history of malignant neoplasm of breast; Z91.048 Other nonmedicinal substance allergy status; Z88.5 Allergy status to narcotic agent; Z88.2 Allergy status to sulfonamides; Z87.01 Personal history of pneumonia (recurrent)
CPT/HCPCS: 36415; 36591; 71046; 71275; 80053; 82550; 82553; 84484; 85025; 85379; 93005; 93010; 99285